=== PATIENT | male | born 1970 | race Caucasian/White ===

== ENCOUNTER 2023-01-30 08:09 | Outpatient (OUT) | payer BC, SELFPAY ==
[2023-01-30 08:39] LABS: Basophils Percent Auto 0.4 % (0.2-2.0); Eosinophils Absolute Auto 0.1 10^3/uL (0.0-0.7); Eosinophils Percent Auto 2.4 % (0.9-7.0); Hemoglobin 16.1 g/dL (14.0-18.0); Immature Granulocytes Abs Auto 0.03 10^3/uL (0.00-0.03); Immature Granulocytes Pct Auto 0.6 % (0.0-0.5); Lymphocytes Absolute Auto 1.6 10^3/uL (1.2-3.8); Lymphocytes Percent Auto 31.4 % (20.5-60.0); Mean Corpuscular HGB Conc 34.3 g/dL (29.9-35.2); Mean Corpuscular Hemoglobin 30.5 pg (25.9-34.0); Mean Platelet Volume 9.6 fL (9.5-13.5); Monocytes Absolute Auto 0.5 10^3/uL (0.3-0.8); Neutrophils Absolute Auto 2.8 10^3/uL (1.4-6.5); Neutrophils Percent Auto 55.2 % (43.0-75.0); Platelet Count 201 10^3/uL (150-450); Red Blood Count 5.28 10^6/uL (4.70-6.10); Red Cell Distribution Width 12.1 % (11.0-15.0)
[2023-01-30 08:49] LABS: Estimated Average Glucose 126 mg/dL
[2023-01-30 16:42] LABS: Anion Gap 14.5; BUN Creatinine Ratio 14.8; Calcium 8.6 mg/dL (8.5-10.1); Carbon Dioxide 25.5 mmol/L (21.0-32.0); Chloride 104 mmol/L (98-107); Estimated GFR (African America >60 (>=60); Estimated GFR (Non-African Ame >60 (>=60); Glucose 130 mg/dL (74-106); Sodium 140 mmol/L (136-145); Thyroid Stimulating Hormone 1.298 uIU/mL (0.358-3.740)
== END 2023-01-30 08:10 ==
LOC: LAB 08:12
PROVIDERS: PCP Internal Medicine; Visit Provider Internal Medicine
DX: I10 Essential (primary) hypertension (principal); R73.01 Impaired fasting glucose; R00.2 Palpitations; R53.83 Other fatigue
CPT/HCPCS: 36415; 80048; 83036; 84443; 85025

== ENCOUNTER 2023-06-26 10:45 | Outpatient (OUT) | payer BC, SELFPAY ==
[2023-06-26 10:58] LABS: Basophils Percent Auto 0.4 % (0.2-2.0); Eosinophils Absolute Auto 0.1 10^3/uL (0.0-0.7); Eosinophils Percent Auto 2.1 % (0.9-7.0); Hematocrit 50.5 % (42.0-54.0); Hemoglobin 16.9 g/dL (14.0-18.0); Immature Granulocytes Abs Auto 0.04 10^3/uL (0.00-0.03); Immature Granulocytes Pct Auto 0.6 % (0.0-0.5); Lymphocytes Absolute Auto 1.7 10^3/uL (1.2-3.8); Lymphocytes Percent Auto 25.5 % (20.5-60.0); Mean Corpuscular HGB Conc 33.5 g/dL (29.9-35.2); Mean Corpuscular Hemoglobin 30.9 pg (25.9-34.0); Mean Corpuscular Volume 92.3 fL (80.0-94.0); Monocytes Absolute Auto 0.5 10^3/uL (0.3-0.8); Monocytes Percent Auto 6.9 % (1.7-12.0); Neutrophils Absolute Auto 4.3 10^3/uL (1.4-6.5); Neutrophils Percent Auto 64.5 % (43.0-75.0); Platelet Count 227 10^3/uL (150-450); Red Blood Count 5.47 10^6/uL (4.70-6.10); Red Cell Distribution Width 12.2 % (11.0-15.0); White Blood Count 6.7 10^3/uL (4.0-11.0)
[2023-06-26 11:23] LABS: Alanine Aminotransferase 63 U/L (16-63); Albumin Globulin Ratio 1.2; Albumin Level 3.9 g/dL (3.4-5.0); Alkaline Phosphatase 68 U/L (46-116); Aspartate Amino Transferase 29 U/L (15-37); BUN Creatinine Ratio 9.5; Bilirubin Total 0.6 mg/dL (0.2-1.0); Calcium 8.4 mg/dL (8.5-10.1); Carbon Dioxide 31.1 mmol/L (21.0-32.0); Chloride 102 mmol/L (98-107); Estimated GFR (African America >60 (>=60); Estimated GFR (Non-African Ame >60 (>=60); Globulin 3.3 g/dL; Glucose 162 mg/dL (74-106); Potassium 4.1 mmol/L (3.5-5.1); Sodium 138 mmol/L (136-145); Total Protein 7.2 g/dL (6.4-8.2)
== END 2023-06-26 10:46 | disposition home or self-care (01) ==
PROVIDERS: PCP Internal Medicine; Visit Provider Internal Medicine
DX: R10.11 Right upper quadrant pain (principal); K21.00 Gastro-esophageal reflux disease with esophagitis, without bleeding; R11.0 Nausea
CPT/HCPCS: 36415; 80053; 83690; 85025

== ENCOUNTER 2023-07-02 09:58 | Outpatient (OUT) | payer BC, SELFPAY ==
--- NOTE | 2023-07-02 10:02 | US_ITS ---
The [address] [address] Patient Name: JOCY MICHAUD MRN: [id number] date: 1970 Sex: M Assigned Patient Location: [place] Current Patient Location: [place] Accession/Order Number: [id number] Exam Date: 07/02/2023 10:02 Report Date: 07/02/2023 10:59 At the request of: CARRIE TAFOYA Procedure: US right upper quadrant EXAM: US right upper quadrant HISTORY: . Right Upper Quadrant Abdominal Pain R10.11 . COMPARISON: None. TECHNIQUE: Grayscale and color imaging was performed FINDINGS: The pancreas is grossly unremarkable. The liver is normal in size. There is increased echogenicity of liver consistent with fatty infiltration of liver. Color-flow is noted in the portal and hepatic veins. The gallbladder appears normal. Common bile duct measures 8 mm. Right kidney measures 11.5 x 5.2 x 6 cm. Color-flow is noted. There is a 7 mm cyst involving the right kidney. No hydronephrosis is noted. No fluid is noted in the right upper quadrant. US/US right upper quadrant IMPRESSION: 1. Increased echogenicity of liver consistent with fatty infiltration of liver. 2. Common bile duct is prominent in size measuring 8 mm. 3. The remainder the right upper quadrant was unremarkable. Electronically authenticated by: NESS DUARTE Date: 07/02/2023 10:59
== END 2023-07-02 09:59 | disposition home or self-care (01) ==
LOC: US 09:58
PROVIDERS: PCP Internal Medicine; Visit Provider Internal Medicine
DX: R10.11 Right upper quadrant pain (principal); K76.0 Fatty (change of) liver, not elsewhere classified
CPT/HCPCS: 76705

== ENCOUNTER 2023-09-18 09:25 | Outpatient (OUT) | payer BC, SELFPAY ==
--- OUTSIDE RECORDS SUMMARY | 2023-09-18 09:31 | XMS_ITS | CCD ---
Author Name Unknown Address [address] [place] [address] Organization [facility] Care Team Providers Care Produce Team Lead Name Role Phone NILL, DR SANDRA Admitting Unavailable NILL, DR SANDRA Attending Unavailable BALL, DR BUTLER Primary Care Unavailable NILL, DR SANDRA Consulting Unavailable AGUBOSIM, RAJ Consulting Unavailable NADYA, REHANA Consulting Unavailable BALL, DR BUTLER Admitting Unavailable BALL, DR BUTLER Attending Unavailable BALL, DR BUTLER Primary Care Unavailable BALL, DR BUTLER Consulting Unavailable BALL, DR BUTLER Admitting Unavailable BALL, DR BUTLER Attending Unavailable BALL, DR BUTLER Primary Care Unavailable BALL, DR BUTLER Consulting Unavailable NILL, DR SANDRA Admitting Unavailable NILL, DR SANDRA Attending Unavailable BALL, DR BUTLER Primary Care Unavailable NILL, DR SANDRA Consulting Unavailable Ball, Octavio Unavailable Pati Xiong Unavailable Allergies Allergy Classification Reported Allergen(s) Allergy Type Date of Onset Reaction(s) Facility (1 source) patient allergy list reviewed by nurse or physicia Propensity to adverse reactions 8 Comment:Done [facility] Other Medications Current Medications Medication Drug Class(es) Dates Sig (Normalized) Sig (Original) aspirin 81 mg chewable tablet (11 sources) Platelet Aggregation Inhibitor, Nonsteroidal Anti-inflammatory Drug take 1 tablet by mouth every twenty-four hours Aspirin 81 81 MG 1 tablet Orally Once a day Active take 1 tablet by mouth once emanuel y Aspirin 81 81 MG 1 tablet Orally Once a day Active atenolol 50 mg oral tablet (7 sources) beta-Adrenergic Reuben Start: 05-10-2023 take 1 tablet by mouth every twenty-four hours Atenolol 50 MG 1 tablet Orally Once a day for 30 days Replaces Diltiazem Apr, Active cyproheptadine hydrochloride 4 mg oral tablet (7 sources) Start: 05-10-2023 take 1 tablet by mouth once at bedtime Cyproheptadine HCl 4 MG 1 tablet Orally q HS for 30 days Apr, Active take 1 tablet by mouth at bedtim e Cyproheptadine HCl 4 MG TAKE 1 TABLET BY MOUTH AT BEDTIME for 90 Active 24 hr dilTIAZem hydrochloride 240 mg extended release oral capsule (4 sources) Calcium Channel Reuben take 1 capsule by mouth every twenty-four hours dilTIAZem HCl ER 240 MG 1 capsule Orally Once a day Active etodolac 400 mg oral tablet (4 sources) Nonsteroidal Anti-inflammatory Drug Start: 10-09-19 take 1 tablet by mouth every twelve hours Etodolac 400 MG 1 tablet with food Orally Twice a day for 7 days Sep, Active famotidine 10 mg oral tablet (11 sources) Histamine-2 Receptor Antagonist take 1 tablet by mouth every twenty-four hours Famotidine 10 MG 1 tablet Orally Once a day Active niacin 500 mg oral tablet (11 sources) Nicotinic Acid take 1 tablet by mouth every twenty-four hours Niacin 500 MG 1 tablet with food Orally Once a day Active omeprazole 40 mg delayed release oral capsule (5 sources) Proton Pump Inhibitor Start: 06-25-20 take 1 capsule by mouth once daily Omeprazole 40 MG 1 capsule 30 minutes before morning meal Orally Once a day for 30 days Jun, Active Completed/Discontinued Medications Medication Drug Class(es) Dates Sig (Normalized) Sig (Original) ondansetron 4 mg oral tablet (5 sources) Serotonin-3 Receptor Antagonist Start: 06-25-2023 take 1 tablet by mouth every eight hours as needed for nausea Ondansetron HCl 4 MG 1 tablet Orally every 8 hours as needed for nausea for 5 days Jun, Not-Taking/PRN triamcinolone acetonide 40 mg/ml injectable suspension (8 sources) Corticosteroid Start: 05-03-2023 Kenalog-40 Apr, 60 mg Problems Active Problems Problem Classification Problem Date Documented Da te Episodic/Chronic Abdominal pain (13 sources) Epigastric pain; Translations: [Epigastric pain] Episodic Cardiac dysrhythmias (13 sources) Intermittent palpitations; Translations: [Palpitations] Episodic Developmental disorders (3 sources) Developmental academic disorder; Translations: [Developmental disorder of scholastic skills, unspecified] Onset: 06-22-2016 Chronic Developmental disorders (11 sources) Borderline intellectual disability; 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] Episodic Diabetes mellitus without complication (14 sources) Impaired fasting glycemia; Translations: [Impaired fasting glucose] Episodic Disorders of lipid metabolism (3 sources) Pure hypercholesterolemi a; Translations: [Pure hypercholesterolemi a, unspecified] Onset: 05-21-2015 Chronic Esophageal disorders (11 sources) Gastro-esophageal reflux disease with esophagitis; Translations: [Gastroesophageal reflux disease with esophagitis without hemorrhage] Chronic Essential hypertension (20 sources) Essential (primary) hypertension; Translations: [Essential hypertension] Onset: 11-03-2021 Chronic Headache; including migraine (20 sources) Tension-type headache; Translations: [Tension-type headache, unspecified, not intractable] Chronic Headache; including migraine (12 sources) Daily headache; Translations: [Daily headache] Episodic Malaise and fatigue (1 source) Other fatigue Episodic Mood disorders (14 sources) Mild recurrent major depression; Translations: [Major depressive disorder, recurrent, mild] Onset: 06-22-2016 Chronic Nausea and vomiting (1 source) Nausea Episodic Other connective tissue disease (12 sources) Muscle pain; Translations: [Myalgia, other site] Episodic Other gastrointestinal disorders (12 sources) Abnormal feces; Translations: [Other fecal abnormalities] Episodic Other nutritional; endocrine; and metabolic disorders (1 source) Obesity; Translations: [Obesity, unspecified] Chronic Other nutritional; endocrine; and metabolic disorders (14 sources) Body mass index 25-29 - overweight; Translations: [Overweight] Onset: 10-07-2015 Episodic Other nutritional; endocrine; and metabolic disorders (2 sources) Overweight Episodic Other nutritional; endocrine; and metabolic disorders (1 source) Overweight; Translations: [Overweight] Episodic Other screening for suspected conditions (not mental disorders or infectious disease) (3 sources) Encounter for screening for malignant neoplasm of prostate; Translations: [Electrocardiogram abnormal] Onset: 09-28-2022 Resolved: 01-07-2021 Episodic Other upper respiratory disease (20 sources) Seasonal allergic rhinitis; Translations: [Other seasonal allergic rhinitis] Chronic Other upper respiratory disease (11 sources) Allergic rhinitis due to pollen; Translations: [Allergic rhinitis due to pollen] Chronic Other upper respiratory disease (1 source) Allergic rhinitis; Translations: [Allergic rhinitis, unspecified] Onset: 04-27-2013 Chronic Other upper respiratory disease (1 source) Other seasonal allergic rhinitis Chronic Other upper respiratory infections (2 sources) Acute pharyngitis; Translations: [Acute pharyngitis, unspecified] Onset: 01-10-2014 Episodic Residual codes; unclassified (11 sources) Family history of coronary arteriosclerosis; Translations: [Family history of ischemic heart disease and other diseases of the circulatory system] Episodic Residual codes; unclassified (1 source) Family history of ischemic heart disease; Translations: [Family history of ischemic heart disease and other diseases of the circulatory system] Episodic Unclassified (4 sources) CONTACT W/AND (SUSP) EXPOS COVID-19; Translations: [CONTACT W/AND (SUSP) EXPOS COVID-19] Onset: 10-28-2021 Unclassified (1 source) Exposure to acute respiratory syndrome coronavirus 2; Translations: [Contact with and (suspected) exposure to COVID-19] Past or Other Problems Problem Classification Problem Date Documented Da te Episodic/Chronic Anal and rectal conditions (1 source) Ulcer of anorectal structure; Translations: [Ulcer of anus and rectum] Onset: 05-13-2015 Episodic Esophageal disorders (4 sources) Esophageal disorders Immunizations and screening for infectious disease (1 source) Vaccination given; Translations: [Encounter for immunization] Onset: 06-21-2014 Episodic Nonspecific chest pain (2 sources) Chest pain; Translations: [Other chest pain] Resolved: 01-07-2021 Episodic Other aftercare (1 source) long-term (current) use of aspirin; Translations: [SPEECH SCIENTIST CURRENT USE OF ASPIRIN] Onset: 11-03-2021 Episodic Other and unspecified benign neoplasm (1 source) Benign neoplasm of ascending colon; Translations: [BENIGN NEOPLASM OF ASCENDING COLON] Onset: 11-03-2021 Episodic Other and unspecified benign neoplasm (1 source) Polyp of colon; Translations: [POLYP OF COLON] Onset: 11-03-2021 Episodic Other gastrointestinal disorders (4 sources) Other fecal abnormalities; Translations: [OTHER FECAL ABNORMALITIES] Onset: 10-29-2021 Episodic Other non-traumatic joint disorders (1 source) Shoulder joint pain; Translations: [Pain in left shoulder] Onset: 10-07-2015 Episodic Unclassified (1 source) CONTACT W/AND (SUSP) EXPOS COVID-19; Translations: [CONTACT W/AND (SUSP) EXPOS COVID-19] Onset: 06-08-2022 Unclassified (11 sources) Suspected disease caused by 2019-nCoV; Translations: [Suspected COVID-19 virus infection] Results Test Name Value Interpretation Reference Range Facil ity CBC AUTO DIFFon 09-26-2022 BASO # 0.0 103/ul Normal 0.0-0.1 [facility] Comment on above: Performed By: #### C BC #### [facility] [address] [address] [address] Billy Vann Basophils/100 WBC (Bld) 0.3 % Normal 0.2-2.0 [facility] Comment on above: Performed By: #### C BC #### [facility] [address] [address] [address] Billy Vann EO # 0.2 103/ul Normal 0.0-0.7 [facility] Comment on above: Performed By: #### C BC #### [facility] [address] [address] [address] Billy Vann Eosinophils/100 WBC (Bld) 2.6 % Normal 0.9-7.0 [facility] Comment on above: Performed By: #### C BC #### [facility] [address] [address] [address] Billy Vann Erythrocyte distribution width (RBC) [Ratio] 11.9 % Normal 11.0-15.0 [facility] Comment on above: Performed By: #### C BC #### [facility] [address] [address] [address] Billy Vann Hematocrit (Bld) [Volume fraction] 51.4 % Normal 42.0-54.0 [facility] Comment on above: Performed By: #### C BC #### [facility] [address] [address] [address] Billy Vann Hemoglobin (Bld) [Mass/Vol] 16.9 g/dL Normal 14.0-18.0 [facility] Comment on above: Performed By: #### C BC #### [facility] [address] [address] [address] Billy Vann IG # 0.03 10e3/ul Normal 0.00-0.03 [facility] Comment on above: Performed By: #### C BC #### [facility] [address] [place] [address] Dr. Billy Vann IG % 0.5 % Normal 0.0-0.5 [facility] Comment on above: Performed By: #### C BC #### [facility] [address] [place] [address] Dr. Billy Vann LYMPH # 1.7 103/ul Normal 1.2-3.8 [facility] Comment on above: Performed By: #### C BC #### [facility] [address] [place] [address] Dr. Billy Vann Lymphocytes/100 WBC (Bld) 29.6 % Normal 20.5-60.0 [facility] Comment on above: Performed By: #### C BC #### [facility] [address] [place] [address] Dr. Billy Vann MANUAL DIFF REQ NO Normal [facility] Comment on above: Performed By: #### C BC #### [facility] [address] [place] [address] Dr. Billy Vann MCH (RBC) [Entitic mass] 30.7 pg Normal 25.9-34.0 [facility] Comment on above: Performed By: #### C BC #### [facility] [address] [place] [address] Dr. Billy Vann MCHC (RBC) [Mass/Vol] 32.9 g/dL Normal 29.9-35.2 [facility] Comment on above: Performed By: #### C BC #### [facility] [address] [place] [address] Dr. Billy Vann MCV (RBC) [Entitic vol] 93.5 fL Normal 80.0-94.0 [facility] Comment on above: Performed By: #### C BC #### [facility] [address] [place] [address] Dr. Billy Vann MONO # 0.5 103/ul Normal 0.3-0.8 [facility] Comment on above: Performed By: #### C BC #### [facility] [address] [address] [address] Billy Vann Monocytes/100 WBC (Bld) 8.5 % Normal 1.7-12.0 [facility] Comment on above: Performed By: #### C BC #### [facility] [address] [address] [address] Billy Vann NEUT # 3.4 103/ul Normal 1.4-6.5 [facility] Comment on above: Performed By: #### C BC #### [facility] [address] [address] [address] Billy Vann Neutrophils/100 WBC (Bld) 58.5 % Normal 43.0-75.0 [facility] Comment on above: Performed By: #### C BC #### [facility] [address] [place] [address] Dr. Billy Vann Platelet mean volume (Bld) [Entitic vol] 9.6 fL Normal 9.5-13.5 [facility] Comment on above: Performed By: #### C BC #### [facility] [address] [place] [address] Dr. Billy Vann PLT 196 103/ul Normal 150-450 [facility] Comment on above: Performed By: #### C BC #### [facility] [address] [place] [address] Dr. Billy Vann RBC 5.50 106/ul Normal 4.70-6.10 [facility] Comment on above: Performed By: #### C BC #### [facility] [address] [place] [address] Dr. Billy Vann WBC 5.9 103/ul Normal 4.0-11.0 [facility] Comment on above: Performed By: #### C BC #### [facility] [address] [place] [address] Dr. Billy Vann LIPID PROFILEon 09-26-2022 CHOL-HDL RATIO NORM SEE BELOW Normal [facility] Comment on above: Result Comment: 3.3 - 4.4 LOW RISK 4.4 - 7.1 AVERAGE RISK 7.1 - 11.0 MODERATE RISK >11.0 HIGH RISK Performed By: #### C MP, LIPID #### [facility] [address] [place] [address] Dr. Billy Vann Cholesterol [Mass/Vol] 180 mg/dL Normal <=200 [facility] Comment on above: Performed By: #### C MP, LIPID #### [facility] [address] [address] [address] Billy Vann Cholesterol in HDL [Mass/Vol] 39 mg/dL Critically low 40-60 [facility] Comment on above: Performed By: #### C MP, LIPID #### [facility] [address] [place] [address] Dr. Billy Vann Cholesterol in LDL [Mass/Vol] 105.0 mg/dL Normal [facility] Comment on above: Performed By: #### C MP, LIPID #### [facility] [address] [place] [address] Dr. Billy Vann Cholesterol.total/Ch olesterol in HDL [Mass ratio] 4.6 {ratio} Normal [facility] Comment on above: Performed By: #### C MP, LIPID #### [facility] [address] [place] [address] Dr. Billy Vann HDL NORMAL > or = 60 mg/dl - LOW CARDIOVASCULAR RISK <40 mg/dl - HIGH CARDIOVASCULAR RISK Normal [facility] Comment on above: Performed By: #### C MP, LIPID #### [facility] [address] [place] [address] Dr. Billy Vann LDL CALC NORMAL SEE BELOW Normal [facility] Comment on above: Result Comment: <100 mg/dl OPTIMAL 100 - 129 mg/dl NEAR OR ABOVE OPTIMAL 130 - 159 mg/dl BORDERLINE HIGH 160 - 189 mg/dl HIGH >190 mg/dl VERY HIGH Performed By: #### C MP, LIPID #### [facility] [address] [place] [address] Dr. Billy Vann Triglyceride [Mass/Vol] 180 mg/dL Critically high <=150 [facility] Comment on above: Performed By: #### C MP, LIPID #### [facility] [address] [place] [address] Dr. Billy Vann VLDL CALC 36.0 mg/dL Normal [facility] Comment on above: Performed By: #### C MP, LIPID #### [facility] [address] [place] [address] Dr. Billy Vann PROF 14(COMP METB)on 023 Albumin [Mass/Vol] 4.0 g/dL Normal 3.4-5.0 [facility] Comment on above: Performed By: #### C MP, LIPID #### [facility] [address] [place] [address] Dr. Billy Vann Albumin/Globulin [Mass ratio] 1.3 {ratio} Normal [facility] Comment on above: Performed By: #### C MP, LIPID #### [facility] [address] [place] [address] Dr. Billy Vann ALP [Catalytic activity/Vol] 64 U/L Normal 46-116 [facility] Comment on above: Performed By: #### C MP, LIPID #### [facility] [address] [place] [address] Dr. Billy Vann ALT [Catalytic activity/Vol] 38 U/L Normal 16-63 [facility] Comment on above: Performed By: #### C MP, LIPID #### [facility] [address] [place] [address] Dr. Billy Vann Anion gap [Moles/Vol] 10.0 mmol/L Normal [facility] Comment on above: Performed By: #### C MP, LIPID #### [facility] [address] [place] [address] Dr. Billy Vann AST [Catalytic activity/Vol] 22 U/L Normal 15-37 [facility] Comment on above: Performed By: #### C MP, LIPID #### [facility] [address] [place] [address] Dr. Billy Vann Bilirubin [Mass/Vol] 0.6 mg/dL Normal 0.2-1.0 [facility] Comment on above: Performed By: #### C MP, LIPID #### [facility] [address] [address] [address] Billy Vann Calcium [Mass/Vol] 8.8 mg/dL Normal 8.5-10.1 [facility] Comment on above: Performed By: #### C MP, LIPID #### [facility] [address] [address] [address] Billy Vann Chloride [Moles/Vol] 103 mmol/L Normal 98-107 [facility] Comment on above: Performed By: #### C MP, LIPID #### [facility] [address] [place] [address] Dr. Billy Vann CO2 [Moles/Vol] 31.2 mmol/L Normal 21.0-32.0 [facility] Comment on above: Performed By: #### C MP, LIPID #### [facility] [address] [place] [address] Dr. Billy Vann Creatinine [Mass/Vol] 0.78 mg/dL Normal 0.70-1.30 [facility] Comment on above: Performed By: #### C MP, LIPID #### [facility] [address] [place] [address] Dr. Billy Vann EGFR-AF PALESTINIAN >60 Normal >=60 [facility] Comment on above: Performed By: #### C MP, LIPID #### [facility] [address] [place] [address] Dr. Billy Vann EGFR-NON AF PALESTINIAN >60 Normal >=60 [facility] Comment on above: Performed By: #### C MP, LIPID #### [facility] [address] [place] [address] Dr. Billy Vann Globulin (S) [Mass/Vol] 3.1 g/dL Normal [facility] Comment on above: Performed By: #### C MP, LIPID #### [facility] [address] [place] [address] Dr. Billy Vann Glucose [Mass/Vol] 122 mg/dL Critically high 74-106 [facility] Comment on above: Performed By: #### C MP, LIPID #### [facility] [address] [place], [place] [id number] Dr. Billy Vann Potassium [Moles/Vol] 4.2 mmol/L Normal 3.5-5.1 [facility] Comment on above: Performed By: #### C MP, LIPID #### [facility] [address] [place] [address] Dr. Billy Vann Protein [Mass/Vol] 7.1 g/dL Normal 6.4-8.2 [facility] Comment on above: Performed By: #### C MP, LIPID #### [facility] [address] [place] [address] Dr. Billy Vann Sodium [Moles/Vol] 140 mmol/L Normal 136-145 [facility] Comment on above: Performed By: #### C MP, LIPID #### [facility] [address] [place] [address] Dr. Billy Vann Urea nitrogen [Mass/Vol] 10.0 mg/dL Normal 7.0-18.0 [facility] Comment on above: Performed By: #### C MP, LIPID #### [facility] [address] [place] [address] Dr. Billy Vann Urea nitrogen/Creatinine [Mass ratio] 12.8 mg/mg Normal [facility] Comment on above: Performed By: #### C MP, LIPID #### [facility] [address] [place] [address] Dr. Billy Vann [facility]on 05-23 SARS-CoV-2 (COVID-19) RNA YAHIR+probe Ql (Unsp spec) Not detected Normal NOT DETECTED [facility] Comment on above: Result Comment: This test is not yet approved or cleared by the [place] FDA. When there are no FDA-approved or cleared tests available, and other criteria are met, FDA can make tests available under an emergency access mechanism called an Emergency Use Authorization (EUA). The EUA for this test is supported by the [place] [employer] of Health and Human Service's (HHS's) declaration that circumstances exist to justify the emergency use of in vitro diagnostics for the detection and/or diagnosis of the virus that causes COVID-19. This EUA will remain in effect (meaning this test can be used) for the duration of the COVID-19 declaration justifying emergency of IVDs, unless it is terminated or revoked by FDA (after which the test may no longer be used). When diagnostic testing is negative, the possibility of a false negative should be considered in the context of a patient's recent exposures and the presence of clinical signs and symptoms consistent with SARS-CoV-2. Performed By: #### [facility] #### [facility] [address] [place] [address] Dr. Billy Vann Ambulatory Visit Summaryon 0 11-04-2021 Ambulatory Visit Summary JASWANT, JOCY Coburn :1970 Visit Date:11/04/2021 Ambulatory Visit Instructions Your Diagnosis Tubulovillous adenoma of colon Your Care Team Attending Physician - Jocy BRADSHAW MD Primary Care Physician - BRENDAN HILLMAN, OCTAVIO This Is Your Medications List Contact prescribing physician if questions or concerns aspirin (aspirin 81 mg Oral EC Tab) diltiazem (DilTIAZem (Eqv-Tiazac) 240 mg/24 hours oral capsule, extended release) famotidine (famotidine 10 mg oral tablet) niacin (niacin 500 mg oral tablet) Procedures Performed Colonoscopy (10/29/2021). Discharge Vitals Temperature (Temporal Artery) 36.3 ?C Medications What How Much When Instructions Unchanged aspirin (aspirin 81 mg Oral EC Tab) 1 Tablets By Mouth Every day Contact prescribing physician if questions or concerns Unchanged diltiazem (DilTIAZem (Eqv-Tiazac) 240 mg/ 24 hours oral capsule, extended release) 1 Capsules By Mouth Every day Contact prescribing physician if questions or concerns Unchanged famotidine (famotidine 10 mg oral tablet) 1 Tablets By Mouth Every day Contact prescribing physician if questions or concerns Unchanged niacin (niacin 500 mg oral tablet) 1 Tablets By Mouth Every day Contact prescribing physician if questions or concerns Allergies No Known Allergies No Known Medication Allergies Problems Ongoing - Any problem that you are currently receiving treatment for. BMI 28.0-28.9,adult Borderline learning disability Chronic headaches HTN (hypertension) Major depressive disorder Positive colorectal cancer screening using Cologuard test Seasonal allergic rhinitis Tubulovillous adenoma of colon Lauri Wilkinson [facility] General Surgery Office/Clini c Noteon 03-15-2022 General Surgery Office/Clinic Note Chief Complaint post operative follow up HPI Staff 6 day post operative follow up post colonoscopy with ascending colon, sigmoid and rectal polypectomies. History of Present Illness 6 days s/p colonoscopy due to positive Cologuard; 3 polyps removed, 1 cm tubulovillous adenoma from transverse colon, and hyperplastic polyps in sigmoid and rectum; denies abdominal pain or blood in stools. Review of Systems ROS - Provider Constitutional: no fever, no sweats, no weight loss. Eyes: no glasses, no blurred vision, no visual loss. ENMT: no dentures, no hoarseness, no swallowing difficulties, no hearing loss, no ear infection(s), no nose bleeds. Cardiovascular: normal blood pressure, no chest pain, regular heartbeat, no heart murmur. Respiratory: no shortness of breath, no cough, no asthma, no wheezing. Gastrointestinal: no nausea, no vomiting, no diarrhea, no constipation, no blood in stool, no change in bowel habits, no abdominal pain, no hepatitis. Genitourinary: no kidney stones, no urine infection, no dysuria. Musculoskeletal: no pain, no weakness. Skin: no changing moles, no rash, no skin lumps. Neurologic: no seizures, no epilepsy, no headache. Psychiatric: no emotional or psychiatric problem. Heme/Lymph: no bleeding problems, no anemia, no blood clots, no transfusions. Allergy/Immunologic: no swollen lymph nodes/glands, no IV drug abuse. Other: Additional ROS info: Except as noted in the above Review of Systems and in the History of Present Illness, all other systems have been reviewed and are negative or noncontributory. Physical Exam Vitals & Measurements T: 36.3 ?C(Temporal Artery) Assessment/Plan 1. Tubulovillous adenoma of colon (D12.6: Benign neoplasm of colon, unspecified) plan follow up colonoscopy in 3 years for surveillance, call sooner if problems/questions. Follow-up No qualifying data available Problem List/Past Medical History Ongoing BMI 28.0-28.9,adult Borderline learning disability Chronic headaches HTN (hypertension) Major depressive disorder Positive colorectal cancer screening using Cologuard test Seasonal allergic rhinitis Tubulovillous adenoma of colon Historical No qualifying data Procedure/Surgical History Colonoscopy (10/29/2021). Medications aspirin 81 mg Oral EC Tab, 81 mg= 1 tab(s), Oral, Daily DilTIAZem (Eqv-Tiazac) 240 mg/24 hours oral capsule, extended release, 240 mg= 1 cap(s), Oral, Daily famotidine 10 mg oral tablet, 10 mg= 1 tab(s), Oral, Daily niacin 500 mg oral tablet, 500 mg= 1 tab(s), Oral, Daily Allergies No Known Allergies No Known Medication Allergies Social History Alcohol - Denies Alcohol Use, 10/07/2021 Substance Abuse - Denies Substance Abuse, 10/07/2021 Tobacco Never (less than 100 in lifetime) Tobacco Use:. Never Smokeless Tobacco Use:., 10/07/2021 Family History CAD - Coronary artery disease: Father. Diabetes mellitus type 2: Father. Hypertension: Mother. Immunizations Vaccine Date Status influenza virus vaccine, inactivated 05/2021 Recorded Normal [facility] Comment on above: Result Comment: Elec tronically Signed By: DOMENIC WEST, Jocy Garcia\Date and Time Signed: 11/04/21 16:18 EDT Reminderson 11-04-2021 Reminders - From: Magalys Mendoza LPN To: N - Clinical; Sent: 11/04/2021 15:56:14 EDT Show up: 10/01/2024 07:00:00 EST Subject: colonoscopy recall Due Date/Time: 10/29/2024 07:00:00 EDT Reminder/Recall Patient is due for colonoscopy 10/29/2024 due to history of tubulovillous adenoma. Normal [facility] Pathology Noteon 10-31-2021 Pathology Note [id number] #1.00CD:127 Normal [facility] Outside Colonoscopyon 2021 Outside Colonoscopy [id number] #1.00CD:127 Normal [facility] Lab Reportson 10-27-2021 Lab Reports [id number] #1.00CD:127 Normal [facility] Covid-19 PCR (CVDTBH)on SARS-CoV-2 (COVID-19) RNA YAHIR+probe Ql (Unsp spec) Not detected Normal NOT DETECTED [facility] Comment on above: Result Comment: This test is not yet approved or cleared by the [place] FDA. When there are no FDA-approved or cleared tests available, and other criteria are met, FDA can make tests available under an emergency access mechanism called an Emergency Use Authorization (EUA). The EUA for this test is supported by the [place] of Health and Human Service's (HHS's) declaration that circumstances exist to justify the emergency use of in vitro diagnostics for the detection and/or diagnosis of the virus that causes COVID-19. This EUA will remain in effect (meaning this test can be used) for the duration of the COVID-19 declaration justifying emergency of IVDs, unless it is terminated or revoked by FDA (after which the test may no longer be used). When diagnostic testing is negative, the possibility of a false negative should be considered in the context of a patient's recent exposures and the presence of clinical signs and symptoms consistent with SARS-CoV-2. Performed By: #### [facility] #### [facility] [address] [address] [address] Billy Vann Ambulatory Visit Summaryon 0 10-07-2021 Ambulatory Visit Summary JOCY MICHAUD :1970 Visit Date:10/07/2021 Ambulatory Visit Instructions Your Care Team Attending Physician - Jocy BRADSHAW MD Primary Care Physician - OCTAVIO TAFOYA DO Referring Physician - OCTAVIO TAFOYA DO This Is Your Medications List aspirin (aspirin 81 mg Oral EC Tab) diltiazem (DilTIAZem (Eqv-Tiazac) 240 mg/24 hours oral capsule, extended release) famotidine (famotidine 10 mg oral tablet) niacin (niacin 500 mg oral tablet) Procedures Performed None. Discharge Vitals Temperature (Temporal Artery) 36.5 ?C Heart Rate (Peripheral) 72 Respiratory Rate 16 Blood Pressure 112/80 Height 187.9 cm Height 187.9 cm Weight 99 kg Weight 99.0 kg BMI 28.04 Medications What How Much When Instructions Unchanged aspirin (aspirin 81 mg Oral EC Tab) 1 Tablets By Mouth Every day Unchanged diltiazem (DilTIAZem (Eqv-Tiazac) 240 mg/ 24 hours oral capsule, extended release) 1 Capsules By Mouth Every day Unchanged famotidine (famotidine 10 mg oral tablet) 1 Tablets By Mouth Every day Unchanged niacin (niacin 500 mg oral tablet) 1 Tablets By Mouth Every day Allergies No Known Allergies No Known Medication Allergies Problems Ongoing - Any problem that you are currently receiving treatment for. BMI 28.0-28.9,adult Borderline learning disability Chronic headaches HTN (hypertension) Major depressive disorder Seasonal allergic rhinitis Normal [facility] Lab Reportson 10-03-2021 Lab Reports [id number] #1.00CD:127 Normal [facility] Lab Reportson 09-22-2021 Lab Reports [id number] #1.00CD:127 Normal [facility] Physician Referralon 022 Physician Referral [id number] #1.00CD:127 Normal [facility] Vital Signs Date Time Vital Sign Value Performing Clinician Facility 09-13-2023 15:30-0500 Body height 185.42 cm Octavio Tafoya Other [facility] Other 09-13-2023 15:30-0500 Body mass index (BMI) [Ratio] 28.07 kg/m2 Octavio Boxer Other [facility] Other 09-13-2023 15:30-0500 Body weight 96.53 kg Octavio Boxer Other [facility] Other 09-13-2023 15:30-0500 Diastolic blood pressure 75 mm[Hg] Octavio Boxer Other [facility] Other 09-13-2023 15:30-0500 Respiratory rate 12 /min Octavio Boxer Other [facility] Other 09-13-2023 15:30-0500 Systolic blood pressure 105 mm[Hg] Octavio Ball Other [facility] Other 06-25-2023 14:00-0400 Body height 185.42 cm Octavio Ball Other [facility] Other 06-25-2023 14:00-0400 Body mass index (BMI) [Ratio] 28.49 kg/m2 Octavio Ball Other [facility] Other 06-25-2023 14:00-0400 Body weight 97.98 kg Octavio Ball Other [facility] Other 06-25-2023 14:00-0400 Diastolic blood pressure 82 mm[Hg] Octavio Ball Other [facility] Other 06-25-2023 14:00-0400 Respiratory rate 12 /min Octavio Ball Other [facility] Other 06-25-2023 14:00-0400 Systolic blood pressure 117 mm[Hg] Octavio Ball Other [facility] Other 12-30-2022 16:15-0400 Body height 185.42 cm Octavio Ball Other [facility] Other 12-30-2022 16:15-0400 Body mass index (BMI) [Ratio] 29.13 kg/m2 Octavio Ball Other [facility] Other 12-30-2022 16:15-0400 Body weight 100.15 kg Octavio Ball Other [facility] Other 12-30-2022 16:15-0400 Diastolic blood pressure 91 mm[Hg] Octavio Ball Other [facility] Other 12-30-2022 16:15-0400 Respiratory rate 12 /min Octavio Ball Other [facility] Other 12-30-2022 16:15-0400 Systolic blood pressure 134 mm[Hg] Octavio Ball Other [facility] Other 10-09-2022 13:45-0500 Body height 185.42 cm Octavio Ball Other [facility] Other 10-09-2022 13:45-0500 Body mass index (BMI) [Ratio] 29.21 kg/m2 Octavio Ball Other [facility] Other 10-09-2022 13:45-0500 Body weight 100.43 kg Octavio Ball Other [facility] Other 10-09-2022 13:45-0500 Diastolic blood pressure 78 mm[Hg] Octavio Ball Other [facility] Other 10-09-2022 13:45-0500 Respiratory rate 12 /min Octavio Ball Other [facility] Other 10-09-2022 13:45-0500 Systolic blood pressure 122 mm[Hg] Octavio Ball Other [facility] Other 08-25-2022 16:30-0500 Body height 185.42 cm Octavio Ball Other [facility] Other 08-25-2022 16:30-0500 Body mass index (BMI) [Ratio] 28.71 kg/m2 Octavio Ball Other [facility] Other 08-25-2022 16:30-0500 Body weight 98.7 kg Octavio Ball Other [facility] Other 08-25-2022 16:30-0500 Diastolic blood pressure 82 mm[Hg] Octavio Tafoya Other [facility] Other 08-25-2022 16:30-0500 Respiratory rate 12 /min Octavio Tafoya Other [facility] Other 08-25-2022 16:30-0500 Systolic blood pressure 122 mm[Hg] Octavio Tafoya Other [facility] Other Encounters Encounter Date Encounter Type Care Provider Facility Start: 09-13-2023 End: 09-13-2023 ambulatory Octavio Tafoya Other [facility] Other Start: 09-13-2023 Encounter for genera l adult medical examination without abnormal findings Octavio Tafoya [facility] Start: 09-13-2023 Periodic preventive med est patient 40-64yrs Octavio Tafoya [facility] Start: 08-04-2023 End: 08-04-2023 ambulatory Octavio Tafoya Other [facility] Other Start: 08-04-2023 Telephone encounter Octavio Tafoya [facility] Start: 06-28-2023 End: 06-28-2023 ambulatory Octavio Tafoya Other [facility] Other Start: 06-28-2023 Telephone encounter Octavio Tafoya [facility] Start: 06-25-2023 End: 06-25-2023 ambulatory Octavio Tafoya Other [facility] Other Start: 06-25-2023 Office outpatient vi sit 15 minutes Octavio Tafoya [facility] Start: 06-25-2023 Telephone encounter Octavio Tafoya [facility] Start: 06-24-2023 End: 06-24-2023 ambulatory Octavio Tafoya Other [facility] Other Start: 06-24-2023 Telephone encounter Octavio Tafoya [facility] Start: 05-12-2023 End: 05-12-2023 ambulatory Octavio Tafoya Other [facility] Other Start: 05-12-2023 Telephone encounter Octavio Brendan [facility] Start: 05-03-2023 End: 05-03-2023 ambulatory Pati Xiong Other [facility] Other Start: 05-03-2023 Nursing evaluation o f patient and report Pati Xiong [facility] Start: 12-30-2022 End: 12-30-2022 ambulatory Octavio Tafoya Other [facility] Other Start: 12-30-2022 Office outpatient vi sit 25 minutes Octavio Tafoya [facility] Start: 10-09-2022 End: 10-09-2022 ambulatory Octavio Tafoya Other [facility] Other Start: 10-09-2022 Office outpatient vi sit 15 minutes Octavio Tafoya [facility] Start: 09-28-2022 Encounter for genera l adult medical examination without abnormal findings DR OCTAVIO TAFOYA [facility] Start: 09-26-2022 End: 09-27-[address] OCTAVIO TAFOYA Facility:[facility] Start: 09-26-2022 End: 09-27-2022 Encounter for general adult medical examination without abnormal findings DR OCTAVIO TAFOYA Facility:[facility] Start: 08-25-2022 End: 08-25-2022 ambulatory Octavio Tafoya Other [facility] Other Start: 08-25-2022 Patient encounter procedure Octavio Tafoya [facility] Start: 08-25-2022 Periodic preventive med est patient 40-64yrs Octavio Tafoya [facility] Start: 06-08-2022 End: 06-08-[address] OCTAVIO TAFOYA Facility:[facility] Start: 10-29-2021 End: 10-29-[address] JOCY BRADSHAW Facility:[facility] Start: 10-28-2021 Encounter for preprocedural laboratory examination DR JOCY BRADSHAW [facility] Start: 10-25-2021 End: 10-26-[address] JOCY BRADSHAW Facility:[facility] Start: 10-25-2021 End: 10-26-2021 Encounter for preprocedural laboratory examination DR JOCY BRADSHAW Facility:[facility] Start: 07-22-2021 Adult health examination Cristina dillon Tyrese Other [facility] Other Procedures Date Procedure Procedure Detail Performing Clinician Start: 09-26-[address] JOHNNIE BRADSHAW Comment on above: Performed By: #### P [facility] #### [facility] [address] [place] [address] Dr. Billy Vann Start: 06-22-2016 General examination of patient Pati Tyrese Other End: 09-17-2021 Depression screening Pati Tyrese Other Immunizations Immunization Date Immunization Notes Care Provider Fa cility 08-12-2021 COVID-19 Vaccine Pfi zer - Documentation Purposes Only Pati Xiong Other [facility] Other 07-24-2021 influenza virus vaccine, split virus (incl. purified surface antigen) Pati Xiong Other [facility] Other 06-06-2020 influenza virus vaccine, split virus (incl. purified surface antigen) Pati Xiong Other [facility] Other 05-04-2018 influenza virus vaccine, split virus (incl. purified surface antigen) Pati Xiong Other [facility] Other 06-28-2017 tetanus and diphther ia toxoids, adsorbed, preservative free, for adult use (5 Lf of tetanus toxoid and 2 Lf of diphtheria toxoid) Pati Xiong Other [facility] Other 06-25-2014 influenza virus vaccine, split virus (incl. purified surface antigen) Pati Xiong Other [facility] Other 05-31-2013 tetanus and diphther ia toxoids, adsorbed, preservative free, for adult use (5 Lf of tetanus toxoid and 2 Lf of diphtheria toxoid) Pati Tyrese Other [facility] Other Payers Date Payer Category Payer Unknown [id number] [id number] 1970 Unknown [id number] 1970 Unknown [id number] 1972 Unknown [id number] 1957 Unknown [id number] Social History Date Type Detail Facility Sex Assigned At [facility] Other Evaluation note 09-13-2023 Note Date & Type Note Facility 09-13-2023 Evaluation note Encounter Date Diagnosis Assessment Notes Aug, Primary hypertension (ICD-10 - I10) This patient is instructed to consume a healthy, low-fat, low-salt diet. They are also encouraged to continue exercise to achieve/maint ain a normal BMI. Patient is instructed on home BP measurements: - rest for 5 minutes w/o talking.- positioned w/ feet on floor and arm supported.- average best 2/3 readings w/ goal < 135/85.- update office w/ home readings in 2 weeks. Aug, Chronic tension-type headache, not intractable (ICD-10 - G44.229) Much improved w/ medication adjustments. Healthy diet, consistent sleep routine Aug, Gastroesophageal reflux disease with esophagitis without hemorrhage (ICD-10 - K21.00) Avoid lying flat after eating. Avoid eating 2 hours prior to bedtime. Smaller, frequent meals may be better tolerated.Josh ght loss if overweight.PP I with any heartburn.Mon itor for dysphagia. Aug, Overweight (BMI 25.0-29.9) (ICD-10 - E66.3) This patient has been instructed on a low-fat, high-fiber diet. They are instructed to reduce calories, portion sizes and snacks. It is recommended that they exercise for 30 minutes, 3-5 times weekly. Aug, Screening PSA (prostate specific antigen) (ICD-10 - Z12.5) Yearly LOYDA and PSA Aug, Wellness examination (ICD-10 - Z00.00) Healthy diet and exercise. Reviewed age-appropria te preventive testing recommended. [facility] Other Evaluation note 06-25-2023 Note Date & Type Note Facility 06-25-2023 Evaluation note Encounter Date Diagnosis Assessment Notes Jun, Right upper quadrant abdominal pain (ICD-10 - R10.11) Low fat, bland diet. GBUS and Hepatic pf, Amylase ER for increased pain, N/V or fever Jun, Gastroesophageal reflux disease with esophagitis without hemorrhage (ICD-10 - K21.00) [place], low fat diet. Begin Omeprazole daily Ondansetron as needed for nausea ER for increased pain, N/V/D or fever Jun, Nausea (ICD-10 - R11.0) [place] diet, small portions. Begin PPI Ondansetron as needed. [facility] Other Evaluation note 05-03-2023 Note Date & Type Note Facility 05-03-2023 Evaluation note Encounter Date Diagnosis Assessment Notes Apr, Acute seasonal allergic rhinitis (ICD-10 - J30.2) [facility] Other Evaluation note 12-30-2022 Note Date & Type Note Facility 12-30-2022 Evaluation note Encounter Date Diagnosis Assessment Notes December, IFG (impaired fasting glucose) (ICD-10 - R73.01) This patient is following a comprehensive diabetic treatment plan. They are checking their feet daily for calluses and nonhealing ulcers. They are being seen for yearly dilated eye examinations. Goals: SBP less than 130, LDL less than 100, FBS less than 140, AC and A1C less than 7%. They are checking their BS daily, will which are reviewed at the office visit. December, Primary hypertension (ICD-10 - I10) This patient is instructed to consume a healthy, low-fat, low-salt diet. They are also encouraged to continue exercise to achieve/maintai n a normal BMI. December, Intermittent palpitations (ICD-10 - R00.2) Avoid stimulants, hydrate and keep active/exercise . December, Gastroesophageal reflux disease with esophagitis without hemorrhage (ICD-10 - K21.00) Diet instructions: Smaller portions, avoid eating and laying flat, avoid eating or drinking prior to bedtime. Weight loss. December, Fatigue, unspecified type (ICD-10 - R53.83) [facility] Other Evaluation note 10-09-2022 Note Date & Type Note Facility 10-09-2022 Evaluation note Encounter Date Diagnosis Assessment Notes Sep, Migraine without aura and with status migrainosus, not intractable (ICD-10 - G43.001) Patient instructed on consistent meals and sleep routine. Reviewed triggers Initiate NSAIDs Sep, Essential (primary) hypertension (ICD-10 - I10) This patient is instructed to consume a healthy, low-fat, low-salt diet. They are also encouraged to continue exercise to achieve/maint ain a normal BMI. [facility] Other Evaluation note 08-25-2022 Note Date & Type Note Facility 08-25-2022 Evaluation note Encounter Date Diagnosis Assessment Notes Aug, Annual physical exam (ICD-10 - Z00.00) Aug, Essential (primary) hypertension (ICD-10 - I10) Aug, IFG (impaired fasting glucose) (ICD-10 - R73.01) Aug, Gastroesophageal reflux disease with esophagitis without hemorrhage (ICD-10 - K21.00) Aug, Overweight (BMI 25.0-29.9) (ICD-10 - E66.3) [facility] Other Clinical Note 10-29-2021 Note Date & Type Note Facility 10-29-2021 Note OPERATIVE NOTE PREOPERATIVE DIAGNOSIS: Positive Cologuard. POSTOPERATIVE DIAGNOSIS: Ascending, sigmoid and rectosigmoid polyps. PROCEDURE: Colonoscopy to cecum with cold snare polypectomy for ascending colon polyp and hot snare polypectomy for sigmoid and rectosigmoid polyp. SURGEON: Jocy Bradshaw M.D. ANESTHESIA: Monitored anesthesia care. ESTIMATED BLOOD LOSS: Less than 1 mL. INDICATIONS AND CONSENT: Patient is a 51-year-old male who recently had a positive Cologuard for colorectal screen. Indications, risks, benefits, alternatives of proceeding with colonoscopy explained extensively to the patient, including the risks of bleeding, colon perforation, anesthetic complications. All of his questions were answered. Informed consent was obtained. PROCEDURE: Patient was brought to the operating room, placed in the left lateral decubitus position. Monitored anesthesia care was provided. Rectal exam was performed which showed no masses or blood. The scope was inserted up the anal canal. Under direct visualization, it was advanced. It was advanced to the cecum where cecal markings were clearly identified. There was noted to be a good prep. Upon withdrawal of the scope, mucosal surfaces were carefully examined. Within the ascending colon, there was noted to be a 5 mm sessile polyp that was removed with cold snare with good hemostasis. Within the sigmoid colon, there was noted to be a 4 mm sessile polyp that was removed with hot snare with good hemostasis, and at the rectosigmoid junction, there was noted to be a 3 mm sessile polyp that was also removed with hot snare with good hemostasis. There were no other mass lesions or polyps. No significant diverticulosis. There were some prominent veins noted in the rectum upon retroflexion of the scope. The scope was then withdrawn. The patient tolerated the procedure well, was sent to recovery room in good condition. Follow up colonoscopy should be in five years for surveillance, but may change depending on the pathology report. CC: Chris Tafoya D.O. [facility] Signed and Approved by: DR JOCY BRADSHAW . 11/03/2021 12:54:00 [facility] Clinical Note 10-11-2021 Note Date & Type Note Facility 10-11-2021 Note Chief Complaint consultation for positive Cologuard HPI Staff 51 year old male presents on consultation from Dr. Tafoya for positive Cologuard. Denies abdominal or rectal pain. No rectal bleeding or change in bowel habits. Denies nausea or vomiting. No unexplained weight loss. Never had colonoscopy in the past. No known family history of colon cancer. History of Present Illness 51 yo male with h/o htn, referred for positive Cologuard, denies change in bms or blood in stools, no abdominal complaints; no previous colonoscopy or abdominal operations; on baby asa daily, no NSAIDs, no SBE prophylaxis, no fmhx of GI malignancy or IBD. no tobacco use. Review of Systems PHQ Score Initial Depression Screen Score: 0 ROS - Provider Constitutional: no fever, no sweats, no weight loss. Eyes: no glasses, no blurred vision, no visual loss. ENMT: no dentures, no hoarseness, no swallowing difficulties, no hearing loss, no ear infection(s), no nose bleeds. Cardiovascular: normal blood pressure, no chest pain, regular heartbeat, no heart murmur. Respiratory: no shortness of breath, no cough, no asthma, no wheezing. Gastrointestinal: no nausea, no vomiting, no diarrhea, no constipation, no blood in stool, no change in bowel habits, no abdominal pain, no hepatitis. Genitourinary: no kidney stones, no urine infection, no dysuria. Musculoskeletal: no pain, no weakness. Skin: no changing moles, no rash, no skin lumps. Neurologic: no seizures, no epilepsy, no headache. Psychiatric: no emotional or psychiatric problem. Heme/Lymph: no bleeding problems, no anemia, no blood clots, no transfusions. Allergy/Immunologic: no swollen lymph nodes/glands, no IV drug abuse. Other: Additional ROS info: Except as noted in the above Review of Systems and in the History of Present Illness, all other systems have been reviewed and are negative or noncontributory. Physical Exam Vitals & Measurements T: 36.5 ?C(Temporal Artery) HR: 72(Peripheral) RR: 16 BP: 112/80 HT: 187.9 cm HT: 187.9 cm WT: 99 kg WT: 99.0 kg BMI: 28.04 HEENT: normal conjunctiva, sclera clear, no scleral icterus, EOM intact, PERRLA, oral mucosa moist without lesions. Neck: trachea midline, no mass, symmetric, no thyromegaly or nodules, no adenopathy Respiratory: lungs CTA, respirations non labored. Cardiovascular: regular rate and rhythm, no murmur, no pedal edema or varicosities. Gastrointestinal: soft, non distended, no tenderness, no masses, no palpable hernias, diastasis recti no, no hepatosplenomegaly; normal bs Lymphatic: no cervical adenopathy, Musculoskeletal: normal gait, digits and nails without infection, nodes, cyanosis, clubbing. Skin: no rashes, no lesions, no ulcers, no subcutaneous nodules, induration. Psychiatric/Neuro: oriented to time, place, person, judgement normal, affect appropriate for age, insight intact, no focal deficits. Tests: labs reviewed, review of old records completed, Discussed surgical options, risks, and possible complications with patient. Assessment/Plan 1. Positive colorectal cancer screening using Cologuard test (R19.5: Other fecal abnormalities) plan colonoscopy under anesthesia, informed consent obtained. Follow-up No qualifying data available Problem List/Past Medical History Ongoing BMI 28.0-28.9,adult Borderline learning disability Chronic headaches HTN (hypertension) Major depressive disorder Positive colorectal cancer screening using Cologuard test Seasonal allergic rhinitis Historical No qualifying data Procedure/Surgical History None. Medications aspirin 81 mg Oral EC Tab, 81 mg= 1 tab(s), Oral, Daily DilTIAZem (Eqv-Tiazac) 240 mg/24 hours oral capsule, extended release, 240 mg= 1 cap(s), Oral, Daily famotidine 10 mg oral tablet, 10 mg= 1 tab(s), Oral, Daily niacin 500 mg oral tablet, 500 mg= 1 tab(s), Oral, Daily Allergies No Known Allergies No Known Medication Allergies Social History Alcohol - Denies Alcohol Use, 10/07/2021 Substance Abuse - Denies Substance Abuse, 10/07/2021 Tobacco Never (less than 100 in lifetime) Tobacco Use:. Never Smokeless Tobacco Use:., 10/07/2021 Family History CAD - Coronary artery disease: Father. Diabetes mellitus type 2: Father. Hypertension: Mother. Immunizations Vaccine Date Status influenza virus vaccine, inactivated 05/2021 Recorded [facility] Comment on above: Result Comment: Elec tronically Signed By: DOMENIC WEST, Jocy Garcia\Date and Time Signed: 10/11/21 10:03 EST Evaluation note Note Date & Type Note Facility Evaluation note No Information [facility] [employer] Other History general Narrative - Reported Note Date & Type Note Facility History general Narrative - Reported Type Medical History Benign essential HTN Medical History Myalgia, other site Medical History Suspected COVID-19 v irus infection Medical History Borderline intellect ual functioning Medical History Epigastric abdominal pain Medical History Positive colorectal cancer screening using Cologuard test Medical History Family history of co ronary artery disease Medical History Acute non intractabl e tension-type headache Medical History Daily headache Medical History Body mass index (BMI ) of 25.0 to 29.9 Medical History IFG (impaired fasting glucose) Medical History Seasonal allergic rhinitis Medical History Essential (primary) hypertension Medical History Intermittent palpitations Medical History Depression, major, r ecurrent, mild Surgical History Colonoscopy 10/30/2021 Hospitalization History see surgical history [facility] Other Summary Purpose Family History No Family History Records FoundNo Family History Records Found Advance Directives No Advanced Directives Records FoundNo Advanced Directives Records Found Additional Source Comments (unrecognized sect ion and content) No Status Records FoundNo Status Records Found INFORMATION SOURCE (unrecogn ized section and content) DATE CREATED AUTHOR 11/09/2021 Wil[facility] DATE CREATED AUTHOR AUTHOR'S ORGANIZ ATION 09/28/2022 [facility] REASON FOR VISIT (unrecogniz ed section and content) WellnessHeadaches/ Stomach4 month Follow upAllergy ShotBP checkNot feeling wellNauseanausealab/us resultsNo InformationWellness FOR RECORDS PERTAINING TO PATIENTS WHO ARE OR HAVE BEEN ENROLLED IN A CHEMICAL DEPENDENCY/SUBSTANCEABUSE PROGRAM, SOME INFORMATION MAY BE OMITTED. This clinical summary was aggregated from multiple sources. Caution should be exercised in using it in the provision of clinical care. This summary normalizes information from multiple sources, and as a consequence, information in this document may materially change the coding, format and clinical context of patient data. In addition, data may be omitted in some cases. CLINICAL DECISIONS SHOULD BE BASED ON THE PRIMARY CLINICAL RECORDS. [email or web address] provides no warranty or guarantee of the accuracy or completeness of information in this document.
[2023-09-18 10:24] LABS: Basophils Percent Auto 0.3 % (0.2-2.0); Eosinophils Absolute Auto 0.1 10^3/uL (0.0-0.7); Eosinophils Percent Auto 1.7 % (0.9-7.0); Hematocrit 47.4 % (42.0-54.0); Hemoglobin 15.7 g/dL (14.0-18.0); Immature Granulocytes Abs Auto 0.02 10^3/uL (0.00-0.03); Immature Granulocytes Pct Auto 0.3 % (0.0-0.5); Lymphocytes Absolute Auto 1.8 10^3/uL (1.2-3.8); Mean Corpuscular HGB Conc 33.1 g/dL (29.9-35.2); Mean Corpuscular Hemoglobin 30.3 pg (25.9-34.0); Mean Corpuscular Volume 91.5 fL (80.0-94.0); Mean Platelet Volume 10.4 fL (9.5-13.5); Monocytes Absolute Auto 0.5 10^3/uL (0.3-0.8); Monocytes Percent Auto 8.6 % (1.7-12.0); Neutrophils Absolute Auto 3.5 10^3/uL (1.4-6.5); Neutrophils Percent Auto 58.1 % (43.0-75.0); Platelet Count 222 10^3/uL (150-450); Red Blood Count 5.18 10^6/uL (4.70-6.10); Red Cell Distribution Width 11.9 % (11.0-15.0); White Blood Count 5.9 10^3/uL (4.0-11.0)
[2023-09-18 11:23] LABS: Alanine Aminotransferase 36 U/L (16-63); Albumin Globulin Ratio 1.2; Albumin Level 3.9 g/dL (3.4-5.0); Alkaline Phosphatase 68 U/L (46-116); Anion Gap 9.4; Aspartate Amino Transferase 20 U/L (15-37); Bilirubin Total 0.5 mg/dL (0.2-1.0); Calcium 8.8 mg/dL (8.5-10.1); Carbon Dioxide 31.7 mmol/L (21.0-32.0); Chloride 104 mmol/L (98-107); Chol HDL Ratio 4.6; Cholesterol 160 mg/dL (<=200); Estimated GFR (African America >60 (>=60); Estimated GFR (Non-African Ame >60 (>=60); Globulin 3.2 g/dL; Glucose 114 mg/dL (74-106); HDL Cholesterol 35 mg/dL (40-60); Potassium 4.1 mmol/L (3.5-5.1); Sodium 141 mmol/L (136-145); Total Protein 7.1 g/dL (6.4-8.2); Triglycerides 122 mg/dL (<=150); VLDL CHOLESTEROL 24.4 mg/dL
[2023-09-18 13:02] LABS: Prostate Specific Antigen Scrn 2.63 ng/mL (<=4.00)
== END 2023-09-18 09:26 | disposition home or self-care (01) ==
PROVIDERS: PCP Internal Medicine; Visit Provider Internal Medicine
DX: Z00.00 Encounter for general adult medical examination without abnormal findings (principal); Z12.5 Encounter for screening for malignant neoplasm of prostate
CPT/HCPCS: 36415; 80053; 80061; 85025; G0103

== ENCOUNTER 2024-10-18 16:08 | Outpatient (OUT) | payer BC, SELFPAY ==
--- OUTSIDE RECORDS SUMMARY | 2024-10-18 16:14 | XMS_ITS | CCD ---
Author Organization [facility] Care Team Providers Care Wringer And Setter Name Role Phone DOMENIC, DR SANDRA Admitting Unavailable NILL, DR SANDRA [...] Unavailable Ball, Octavio Unavailable Pati Xiong Unavailable OCTAVIO CARDONA Primary Care Physician Jocy BRADSHAW Attending Unavailable Allergies Allergy Classification Reported Allergen(s) Allergy Type Date of Onset Reaction(s) Facility (1 source) patient allergy list reviewed by nurse or physicia Propensity to adverse reactions 8 Comment:Done AdvanDx Other (1 source) No Known Medication Allergies; Translations: [No Known Medication Allergies] Propensity to adverse reactions (disorder) [facility] Repository Medications Current Medications Medication Drug Class(es) Dates Sig (Normalized) Sig (Original) aspirin 81 mg chewable tablet (18 sources) Platelet Aggregation Inhibitor, Nonsteroidal Anti-inflammatory Drug Start: 01-14-2024 take 1 tablet by mouth once daily Aspirin 81 mg tablet,chewable Active 81 MG PO Daily January 13, 2024 11:00pm Start: 10-03-2021 take 1 tablet by shola th once daily aspirin 81 mg Oral EC Tab 81 mg = 1 tab(s), Oral, Daily, Refills(s) 0 Start Date: 10/03/21 Status: Ordered take 1 tablet by shola th every twenty-four hours Aspirin 81 81 MG 1 tablet Orally Once a day Active take 1 tablet by shola th once daily Aspirin 81 81 MG 1 tablet Orally Once a day Active atenolol 50 mg oral tablet (19 sources) beta-Adrenergic Reuben Start: 10-03-2024 take 1 tablet by mouth once daily atenolol 50 mg Tab 50 mg = 1 tab(s), Oral, Daily, Refills(s) 0 Start Date: 10/03/24 Status: Ordered Start: 02-29-2024 take 1 tablet by shola th once daily Atenolol 50 mg tablet Active 0 .ROUTE .COMPLEX February 29, 2024 6:33am TAKE 1 TABLET BY MOUTH EVERY DAY Start: 01-14-2024 End: 02-29-2024 take 1 tablet by mouth once daily Atenolol 50 mg tablet Discontinued 50 MG PO Daily January 13, 2024 11:00pm February 29, 2024 6:34am Start: 05-10-2023 take 1 tablet by shola th every twenty-four hours Atenolol 50 MG 1 tablet Orally Once a day for 30 days Replaces Diltiazem Apr, Active cyproheptadine hydrochloride 4 mg oral tablet (20 sources) Start: 09-13-2024 take 2 mg by mouth once daily at bedtime Cyproheptadine 4 mg tablet Active 2 MG PO Daily at bedtime September 13, 2024 4:42pm Start: 12-06-2023 End: 09-13-2024 take 1 tablet by mouth once daily at bedtime Cyproheptadine 4 mg tablet Discontinued 0 .ROUTE .COMPLEX May 21, 2024 5:00pm September 13, 2024 4:42pm TAKE 1 TABLET BY MOUTH EVERYDAY AT BEDTIME Start: 12-06-2023 End: 12-06-2023 take 1 tablet by mouth once daily at bedtime Cyproheptadine 4 mg tablet Discontinued 4 MG PO Daily at bedtime December 05, 2023 11:00pm December 06, 2023 5:23pm Start: 05-10-2023 take 1 tablet by shola th once at bedtime Cyproheptadine HCl 4 MG 1 tablet Orally q HS for 30 days Apr, Active 24 hr dilTIAZem hydrochloride 240 mg extended release oral capsule (4 sources) Calcium Channel Reuben take 1 capsule by mouth every twenty-four hours dilTIAZem HCl ER 240 MG 1 capsule Orally Once a day Active DilTIAZem (Eqv-Tiazac) 240 mg/24 hours oral capsule, extended release (1 source) Start: DilTIAZem (Eqv-Tiazac) 240 mg/24 hours oral capsule, extended release 240 mg = 1 cap(s), Oral, Daily, Refills(s) 0 Start Date: 10/03/21 Status: Ordered escitalopram 10 mg oral tablet (2 sources) Serotonin Reuptake Inhibitor Start: 025 take 1 tablet by mouth once daily escitalopram 10 mg Tab 10 mg = 1 tab(s), Oral, Daily, Refills(s) 0 Start Date: 10/03/24 Status: Ordered etodolac 400 mg oral tablet (4 sources) Nonsteroidal Anti-inflammatory Drug Start: take 1 tablet by mouth every twelve hours Etodolac 400 MG 1 tablet with food Orally Twice a day for 7 days Sep, Active niacin 500 mg oral tablet (12 sources) Nicotinic Acid Start: take 1 tablet by mouth once daily niacin 500 mg oral tablet 500 mg = 1 tab(s), Oral, Daily, Refills(s) 0 Start Date: 10/03/21 Status: Ordered omeprazole 40 mg delayed release oral capsule (18 sources) Proton Pump Inhibitor Start: take 1 capsule by mouth once daily omeprazole 40 mg Cap-DR 40 mg = 1 cap(s), Oral, Daily, Refills(s) 0 Start Date: 10/03/24 Status: Ordered Start: 01-14-2024 Omeprazole 40 mg capsule,delayed release(DR/EC) Active 0 .ROUTE .COMPLEX 90 January 14, 2024 7:40am TAKE 1 CAPSULE BY MOUTH EVERY DAY 30 MINUTES BEFORE MORNING MEAL Start: 01-14-2024 End: 01-14-2024 take 1 capsule by mouth once daily Omeprazole 40 mg capsule,delayed release(DR/EC) Discontinued 40 MG PO Daily January 13, 2024 11:00pm January 14, 2024 7:40am Start: 06-25-2023 take 1 capsule by mo [facility] once daily Omeprazole 40 MG 1 capsule 30 minutes before morning meal Orally Once a day for 30 days Jun, Active Completed/Discontinued Medications Medication Drug Class(es) Dates Sig (Normalized) Sig (Original) famotidine 10 mg oral tablet (18 sources) Histamine-2 Receptor Antagonist Start: 10-03-2021 End: 09-13-2024 take 1 tablet by mouth once daily Famotidine 10 mg tablet Discontinued 10 MG PO Daily January 13, 2024 11:00pm September 13, 2024 4:42pm ondansetron 4 mg oral tablet (5 sources) [...] sources) Epigastric pain; Translations: [Epigastric pain] Episodic Anxiety disorders (2 sources) Generalized anxiety disorder; Translations: [Generalized anxiety disorder] 09-13-2024 Chronic Cardiac dysrhythmias (20 sources) Intermittent palpitations; Translations: [Palpitations] Episodic Developmental disorders (3 sources) Developmental academic disorder; Translations: [Developmental disorder of scholastic skills, unspecified] Onset: 06-22-2016 Chronic Developmental disorders (12 sources) Borderline intellectual disability; 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] 10-03-2021 Episodic Diabetes mellitus without complication (20 sources) Impaired fasting glycemia; Translations: [Impaired fasting glucose] Episodic Disorders of lipid metabolism (3 sources) Pure hypercholesterolemi a; Translations: [Pure hypercholesterolemi a, unspecified] Onset: 05-21-2015 Chronic Esophageal disorders (20 sources) Gastro-esophageal reflux disease with esophagitis; Translations: [Gastroesophageal reflux disease with esophagitis without hemorrhage] 01-16-2024 Chronic Essential hypertension (20 sources) Essential (primary) hypertension; Translations: [Essential hypertension] Onset: 11-03-2021 Chronic Headache; including migraine (20 sources) Tension-type headache; Translations: [Tension-type headache, unspecified, not intractable] Chronic Headache; including migraine (13 sources) Daily headache; Translations: [Daily headache] 10-03-2021 Episodic Malaise and fatigue (1 source) Other fatigue Episodic Mood disorders (18 sources) Mild recurrent major depression; Translations: [Major depressive disorder, recurrent, mild] Onset: 06-22-2016 09-13-2024 Chronic Nausea and vomiting (1 source) Nausea Episodic Other and unspecified benign neoplasm (2 sources) History of polyp of colon; Translations: [Personal history of adenomatous and serrated colon polyps] Onset: 10-11-2024 Episodic Other and unspecified benign neoplasm (1 source) Adenomatous polyp of colon 11-04-2021 Episodic Other connective tissue disease (12 sources) [...] nutritional; endocrine; and metabolic disorders (2 sources) Overweight; Translations: [Overweight] 10-11-2024 Episodic Other nutritional; endocrine; and metabolic disorders (1 source) Overweight in adulthood with body mass index of 25 or more but less than 30 10-11-2024 Episodic Other screening for suspected conditions (not mental disorders or infectious disease) (7 sources) Encounter for screening for malignant neoplasm of prostate; Translations: [Electrocardiogram abnormal] Onset: 09-28-2022 Resolved: 01-07-2021 Episodic Other upper respiratory disease (20 sources) Seasonal allergic rhinitis; Translations: [Other seasonal allergic rhinitis] 04-19-2024 Chronic Other upper respiratory disease (11 sources) [...] the circulatory system] Episodic Residual codes; unclassified (4 sources) Transient altered mental status; Translations: [Disorientation, unspecified] 03-27-2024 Episodic Residual codes; unclassified (2 sources) Disorientation, unspecified; Translations: [Unspecified psychosis] 03-27-2024 Episodic Unclassified (4 sources) CONTACT W/AND (SUSP) [...] Resolved: 01-07-2021 Episodic Other aftercare (1 source) senior care (current) use of aspirin; Translations: [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 CURRENT USE OF ASPIRIN] Onset: 11-03-2021 [...] Name Value Interpretation Reference Range Facil ity Ambulatory Visit Summaryon 0 10-11-2024 Ambulatory Visit Summary Ambulatory Visit Summary JOCY MICHAUD :1970 Visit Date:10/11/2024 Ambulatory Visit Instructions Your Diagnosis Personal history of adenomatous and serrated colon polyps Your Care Team Attending Physician - Jocy BRADSHAW MD Primary Care Physician - BRENDAN HILLMAN OCTAVIO This Is Your Medications List Contact prescribing physician if questions or concerns aspirin (aspirin 81 mg Oral EC Tab) atenolol (atenolol 50 mg Tab) diltiazem (DilTIAZem (Eqv-Tiazac) 240 mg/24 hours oral capsule, extended release) escitalopram (escitalopram 10 mg Tab) famotidine (famotidine 10 mg oral tablet) niacin (niacin 500 mg oral tablet) omeprazole (omeprazole 40 mg Cap-DR) Procedures Performed Colonoscopy (10/29/2021). Discharge Vitals Heart Rate (Peripheral) 72 Respiratory Rate 16 Blood Pressure 114/70 Height 188 cm Height 74 in Weight 91.9 kg Weight 202.605 lb BMI 26 Medications What How Much When Instructions Unchanged aspirin (aspirin 81 mg Oral EC Tab) 1 Tablets By Mouth Every day Contact prescribing physician if questions or concerns Unchanged atenolol (atenolol 50 mg Tab) 1 Tablets By Mouth Every day Contact prescribing physician if questions or concerns Unchanged diltiazem (DilTIAZem (Eqv-Tiazac) 240 mg/ 24 hours oral capsule, extended release) 1 Capsules By Mouth Every day Contact prescribing physician if questions or concerns Unchanged escitalopram (escitalopram 10 mg Tab) 1 Tablets By Mouth Every day Contact prescribing physician if questions or concerns Unchanged famotidine (famotidine 10 mg oral tablet) 1 Tablets By Mouth Every day Contact prescribing physician if questions or concerns Unchanged niacin (niacin 500 mg oral tablet) 1 Tablets By Mouth Every day Contact prescribing physician if questions or concerns Unchanged omeprazole (omeprazole 40 mg Cap-DR) 1 Capsules By Mouth Every day Contact prescribing physician if questions or concerns Allergies No Known Allergies No Known Medication Allergies Problems Ongoing - Any problem that you are currently receiving treatment for. BMI 26.0-26.9,adult Borderline learning disability Chronic headaches HTN (hypertension) Major depressive disorder Overweight Personal history of adenomatous and serrated colon polyps Positive colorectal cancer screening using Cologuard test Seasonal allergic rhinitis Tubulovillous adenoma of colon Patient Survey You may receive a survey via text or e-mail asking about your office visit. Please share your experience with us by completing your survey. We appreciate your feedback and thank you for choosing us for your care. Lauri [facility] Ambulatory Visit Summary Ambulatory Visit Summary JOCY MICHAUD :1970 Visit Date:10/11/2024 Ambulatory Visit Instructions Your Diagnosis Personal history of adenomatous and serrated colon polyps Your Care Team Attending Physician - DOMENIC WEST, Jocy Coburn Primary Care Physician - OCTAVIO CARDONA DO This Is Your Medications List Contact prescribing physician if questions or concerns aspirin (aspirin 81 mg Oral EC Tab) atenolol (atenolol 50 mg Tab) diltiazem (DilTIAZem (Eqv-Tiazac) 240 mg/24 hours oral capsule, extended release) escitalopram (escitalopram 10 mg Tab) famotidine (famotidine 10 mg oral tablet) niacin (niacin 500 mg oral tablet) omeprazole (omeprazole 40 mg Cap-DR) Procedures Performed Colonoscopy (10/29/2021). Discharge Vitals Heart Rate (Peripheral) 72 Respiratory Rate 16 Blood Pressure 114/70 Height 188 cm Height 74 in Weight 91.9 kg Weight 202.605 lb BMI 26 Medications What How Much When Instructions Unchanged aspirin (aspirin 81 mg Oral EC Tab) 1 Tablets By Mouth Every day Contact prescribing physician if questions or concerns Unchanged atenolol (atenolol 50 mg Tab) 1 Tablets By Mouth Every day Contact prescribing physician if questions or concerns Unchanged diltiazem (DilTIAZem (Eqv-Tiazac) 240 mg/ 24 hours oral capsule, extended release) 1 Capsules By Mouth Every day Contact prescribing physician if questions or concerns Unchanged escitalopram (escitalopram 10 mg Tab) 1 Tablets By Mouth Every day Contact prescribing physician if questions or concerns Unchanged famotidine (famotidine 10 mg oral tablet) 1 Tablets By Mouth Every day Contact prescribing physician if questions or concerns Unchanged niacin (niacin 500 mg oral tablet) 1 Tablets By Mouth Every day Contact prescribing physician if questions or concerns Unchanged omeprazole (omeprazole 40 mg Cap-DR) 1 Capsules By Mouth Every day Contact prescribing physician if questions or concerns Allergies No Known Allergies No Known Medication Allergies Problems Ongoing - Any problem that you are currently receiving treatment for. BMI 26.0-26.9,adult Borderline learning disability Chronic headaches HTN (hypertension) Major depressive disorder Overweight Personal history of adenomatous and serrated colon polyps Positive colorectal cancer screening using Cologuard test Seasonal allergic rhinitis Tubulovillous adenoma of colon Patient Survey You may receive a survey via text or e-mail asking about your office visit. Please share your experience with us by completing your survey. We appreciate your feedback and thank you for choosing us for your care. Normal [facility] CBC AUTO DIFFon 09-26-2022 BASO # 0.0 103/ul Normal 0.0-0.1 [facility] Comment on above: Performed By: #### C BC #### [facility] [address] [place] [address] Dr. Billy Vann Basophils/100 WBC (Bld) 0.3 % Normal 0.2-2.0 [facility] Comment on above: Performed By: #### C BC #### [facility] [address] [place] [address] Dr. Billy Vann EO # 0.2 103/ul Normal 0.0-0.7 [facility] Comment on above: Performed By: #### C BC #### [facility] [address] [place] [address] Dr. Billy Vann Eosinophils/100 WBC (Bld) 2.6 % Normal 0.9-7.0 [facility] Comment on above: Performed By: #### C BC #### [facility] [address] [place] [address] Dr. Billy Vann Erythrocyte distribution width (RBC) [Ratio] 11.9 % Normal 11.0-15.0 [facility] Comment on above: Performed By: #### C BC #### [facility] [address] [place] [address] Dr. Billy Vann Hematocrit (Bld) [Volume fraction] 51.4 % Normal 42.0-54.0 [facility] Comment on above: Performed By: #### C BC #### [facility] [address] [place] [address] Dr. Billy Vann Hemoglobin (Bld) [Mass/Vol] 16.9 g/dL Normal 14.0-18.0 [facility] Comment on above: Performed By: #### C BC #### [facility] [address] [place] [address] Dr. Billy Vann IG # 0.03 10e3/ul Normal 0.00-0.03 [facility] Comment on above: Performed By: #### C BC #### [facility] [address] [place] [address] Dr. Billy Vann IG % 0.5 % Normal 0.0-0.5 [facility] Comment on above: Performed By: #### C BC #### [facility] [address] [place] [address] Dr. Billy Vann LYMPH # 1.7 103/ul Normal 1.2-3.8 [facility] Comment on above: Performed By: #### C BC #### [facility] [address] [place] [address] Dr. Billy Vann Lymphocytes/100 WBC (Bld) 29.6 % Normal 20.5-60.0 [facility] Comment on above: Performed By: #### C BC #### [facility] [address] [place] [address] Dr. Billy Vann MANUAL DIFF REQ NO Normal [facility] Comment on above: Performed By: #### C BC #### [facility] [address] [place] [address] Dr. Billy Vann MCH (RBC) [Entitic mass] 30.7 pg Normal 25.9-34.0 [facility] Comment on above: Performed By: #### C BC #### [facility] [address] [place] [address] Dr. Billy Vann MCHC (RBC) [Mass/Vol] 32.9 g/dL Normal 29.9-35.2 [facility] Comment on above: Performed By: #### C BC #### [facility] [address] [place] [address] Dr. Billy Vann MCV (RBC) [Entitic vol] 93.5 fL Normal 80.0-94.0 [facility] Comment on above: Performed By: #### C BC #### [facility] [address] [place] [address] Dr. Billy Vann MONO # 0.5 103/ul Normal 0.3-0.8 [facility] Comment on above: Performed By: #### C BC #### [facility] [address] [place] [address] Dr. Billy Vann Monocytes/100 WBC (Bld) 8.5 % Normal 1.7-12.0 [facility] Comment on above: Performed By: #### C BC #### [facility] [address] [place] [address] Dr. Billy Vann NEUT # 3.4 103/ul Normal 1.4-6.5 [facility] Comment on above: Performed By: #### C BC #### [facility] [address] [place] [address] Dr. Billy Vann Neutrophils/100 WBC (Bld) 58.5 % Normal 43.0-75.0 [facility] Comment on above: Performed By: #### C BC #### [facility] [address] [place] [address] Dr. Billy Vann Platelet mean volume (Bld) [Entitic vol] 9.6 fL Normal 9.5-13.5 [facility] Comment on above: Performed By: #### C BC #### [facility] [address] [place] [address] Dr. Billy Vann PLT 196 103/ul Normal 150-450 [facility] Comment on above: Performed By: #### C BC #### [facility] [address] [place] [address] Dr. Billy Vann RBC 5.50 106/ul Normal 4.70-6.10 [facility] Comment on above: Performed By: #### C BC #### [facility] [address] [address] [address] Billy Vann WBC 5.9 103/ul Normal 4.0-11.0 [facility] Comment on above: Performed By: #### C BC #### [facility] [address] [address] [address] Billy Vann LIPID PROFILEon 09-26-2022 CHOL-HDL RATIO NORM SEE BELOW Normal [facility] Comment on above: Result Comment: 3.3 - 4.4 LOW RISK 4.4 - 7.1 AVERAGE RISK 7.1 - 11.0 MODERATE RISK >11.0 HIGH RISK Performed By: #### C MP, LIPID #### [facility] [address] [place] [address] Dr. Billy Vann Cholesterol [Mass/Vol] 180 mg/dL Normal <=200 [facility] Comment on above: Performed By: #### C MP, LIPID #### [facility] [address] [place] [address] Dr. Billy Vann Cholesterol in HDL [Mass/Vol] 39 mg/dL Critically low 40-60 [facility] Comment on above: Performed By: #### C MP, LIPID #### [facility] [address] [place] [address] Dr. Billy Vann Cholesterol in LDL [Mass/Vol] 105.0 mg/dL Normal [facility] Comment on above: Performed By: #### C MP, LIPID #### [facility] [address] [place] [address] Dr. Billy Vann Cholesterol.total/C holesterol in HDL [Mass ratio] 4.6 {ratio} Normal [facility] Comment on above: Performed By: #### C MP, LIPID #### [facility] [address] [place] [address] Dr. Billy Vann HDL NORMAL > or = 60 mg/dl - LO W CARDIOVASCULAR RISK <40 mg/dl - HIGH CARDIOVASCULAR RISK Normal [facility] Comment on above: Performed By: #### C MP, LIPID #### [facility] [address] [place] [address] Dr. Billy Vann LDL CALC NORMAL SEE BELOW Normal [facility] Comment on above: Result Comment: <100 mg/dl OPTIMAL 100 - 129 mg/dl NEAR OR ABOVE OPTIMAL 130 - 159 mg/dl BORDERLINE HIGH 160 - 189 mg/dl HIGH >190 mg/dl VERY HIGH Performed By: #### C MP, LIPID #### [facility] [address] [address] [address] Billy Vann Triglyceride [Mass/Vol] 180 mg/dL Critically high <=150 [facility] Comment on above: Performed By: #### C MP, LIPID #### [facility] [address] [address] [address] Billy Vann VLDL CALC 36.0 mg/dL Normal [facility] Comment on above: Performed By: #### C MP, LIPID #### [facility] [address] [place] [address] Dr. Billy Vann PROF 14(COMP METB)on 023 Albumin [Mass/Vol] 4.0 g/dL Normal 3.4-5.0 [facility] Comment on above: Performed By: #### C MP, LIPID #### [facility] [address] [address] [address] Billy Vann Albumin/Globulin [Mass ratio] 1.3 {ratio} Normal [facility] Comment on above: Performed By: #### C MP, LIPID #### [facility] [address] [address] [address] Billy Vann ALP [Catalytic activity/Vol] 64 U/L Normal 46-116 [facility] Comment on above: Performed By: #### C MP, LIPID #### [facility] [address] [address] [address] Billy Vann ALT [Catalytic activity/Vol] 38 U/L Normal 16-63 [facility] Comment on above: Performed By: #### C MP, LIPID #### [facility] [address] [address] [address] Billy Vann Anion gap [Moles/Vol] 10.0 mmol/L Normal [facility] Comment on above: Performed By: #### C MP, LIPID #### [facility] [address] [address] [address] Billy Vann AST [Catalytic activity/Vol] 22 U/L Normal 15-37 [facility] Comment on above: Performed By: #### C MP, LIPID #### [facility] [address] [address] [address] Billy Vann Bilirubin [Mass/Vol] 0.6 mg/dL Normal 0.2-1.0 [facility] Comment on above: Performed By: #### C MP, LIPID #### [facility] [address] [address] [address] Billy Vann Calcium [Mass/Vol] 8.8 mg/dL Normal 8.5-10.1 [facility] Comment on above: Performed By: #### C MP, LIPID #### [facility] [address] [place] [address] Dr. Billy Vann Chloride [Moles/Vol] 103 mmol/L Normal 98-107 [facility] Comment on above: Performed By: #### C MP, LIPID #### [facility] [address] [address] [address] Billy Vann CO2 [Moles/Vol] 31.2 mmol/L Normal 21.0-32.0 [facility] Comment on above: Performed By: #### C MP, LIPID #### [facility] [address] [address] [address] Billy Vann Creatinine [Mass/Vol] 0.78 mg/dL Normal 0.70-1.30 [facility] Comment on above: Performed By: #### C MP, LIPID #### [facility] [address] [address] [address] Billy Vann EGFR-AF JAPANESE >60 Normal >=60 [facility] Comment on above: Performed By: #### C MP, LIPID #### [facility] [address] [address] [address] Billy Vann EGFR-NON AF JAPANESE >60 Normal >=60 [facility] Comment on above: Performed By: #### C MP, LIPID #### [facility] [address] [address] [address] Billy Vann Globulin (S) [Mass/Vol] 3.1 g/dL Normal [facility] Comment on above: Performed By: #### C MP, LIPID #### [facility] [address] [address] [address] Billy Vann Glucose [Mass/Vol] 122 mg/dL Critically high 74-106 [facility] Comment on above: Performed By: #### C MP, LIPID #### [facility] [address] [address] [address] Billy Vann Potassium [Moles/Vol] 4.2 mmol/L Normal 3.5-5.1 [facility] Comment on above: Performed By: #### C MP, LIPID #### [facility] [address] [place] [address] Dr. Billy Vann Protein [Mass/Vol] 7.1 g/dL Normal 6.4-8.2 [facility] Comment on above: Performed By: #### C MP, LIPID #### [facility] [address] [place] [address] Dr. Billy Vann Sodium [Moles/Vol] 140 mmol/L Normal 136-145 [facility] Comment on above: Performed By: #### C MP, LIPID #### [facility] [address] [place] [address] Dr. Billy Vann Urea nitrogen [Mass/Vol] 10.0 mg/dL Normal 7.0-18.0 [facility] Comment on above: Performed By: #### C MP, LIPID #### [facility] [address] [place] [address] Dr. Billy Vann Urea nitrogen/Creatinine [Mass ratio] 12.8 mg/mg Normal [facility] Comment on above: Performed By: #### C MP, LIPID #### [facility] [address] [place] [address] Dr. Billy Vann Covid-19 PCR (CVDTB)on 05-23 SARS-CoV-2 (COVID-19) RNA YAHIR+probe Ql (Unsp spec) Not detected Normal NOT DETECTED [facility] Comment on above: Result Comment: This test is not yet approved or cleared by the [place] FDA. When there are no FDA-approved or cleared tests available, and other criteria are met, FDA can make tests available under an emergency access mechanism called an Emergency Use Authorization (EUA). The EUA for this test is supported by the Yoga Instructor of Health and Human Service's (HHS's) declaration [...] consistent with SARS-CoV-2. Performed By: #### C [facility] #### [facility] [address] [place] [address] Dr. Billy Vann Covid-19 PCR ([facility])on SARS-CoV-2 (COVID-19) RNA YAHIR+probe Ql (Unsp spec) Not detected Normal NOT DETECTED [facility] Comment on above: Result Comment: This test is not yet approved or cleared by the [place] FDA. When there are no FDA-approved or cleared tests available, and other criteria are met, FDA can make tests available under an emergency access mechanism called an Emergency Use Authorization (EUA). The EUA for this test is supported by the [place] of Health and Human Service's (HHS's) declaration [...] consistent with SARS-CoV-2. Performed By: #### C [facility] #### [facility] [address] [place] [address] Dr. Billy Vann Vital Signs Date Time Vital Sign Value Performing Clinician Facility 10-11-2024 15:26-0500 Blood Pressure Location [employer] [facility] 10-11-2024 15:26-0500 Diastolic blood pressure 70 mm[Hg] [employer] [facility] 10-11-2024 15:26-0500 Heart rate 72 /min [employer] 10-11-2024 15:26-0500 Respiratory rate 16 /min [employer] 10-11-2024 15:26-0500 Systolic blood pressure 114 mm[Hg] [employer] 10-03-2024 15:56-0500 Body height 185.42 cm [facility] 10-03-2024 15:56-0500 Body mass index (BMI) [Ratio] 26.5 kg/m2 [facility] 10-03-2024 15:56-0500 Body weight 91.28 kg [facility] 10-03-2024 15:56-0500 Diastolic blood pressure 75 mm[Hg] [facility] 10-03-2024 15:56-0500 Heart rate 74 /min [facility] 10-03-2024 15:56-0500 Respiratory rate 12 /min [facility] 10-03-2024 15:56-0500 Systolic blood pressure 108 mm[Hg] [facility] 09-13-2024 15:49-0500 Body height 185.42 cm [facility] 09-13-2024 15:49-0500 Body mass index (BMI) [Ratio] 26.5 kg/m2 [facility] 09-13-2024 15:49-0500 Body weight 91.22 kg [facility] 09-13-2024 15:49-0500 Diastolic blood pressure 86 mm[Hg] [facility] 09-13-2024 15:49-0500 Heart rate 89 /min [facility] 09-13-2024 15:49-0500 Respiratory rate 12 /min [facility] 09-13-2024 15:49-0500 Systolic blood pressure 121 mm[Hg] [facility] 05-24-2024 15:36-0400 Body height 185.42 cm [facility] 05-24-2024 15:36-0400 Body mass index (BMI) [Ratio] 25.6 kg/m2 [facility] 05-24-2024 15:36-0400 Body weight 88.11 kg [facility] 05-24-2024 15:36-0400 Diastolic blood pressure 80 mm[Hg] [facility] 05-24-2024 15:36-0400 Heart rate 81 /min [facility] 05-24-2024 15:36-0400 Respiratory rate 12 /min [facility] 05-24-2024 15:36-0400 Systolic blood pressure 123 mm[Hg] [facility] 03-27-2024 15:55-0400 Body height 185.42 cm [facility] 03-27-2024 15:55-0400 Body mass index (BMI) [Ratio] 25.4 kg/m2 [facility] 03-27-2024 15:55-0400 Body weight 87.54 kg [facility] 03-27-2024 15:55-0400 Diastolic blood pressure 77 mm[Hg] [facility] 03-27-2024 15:55-0400 Heart rate 91 /min [facility] 03-27-2024 15:55-0400 Respiratory rate 12 /min [facility] 03-27-2024 15:55-0400 Systolic blood pressure 112 mm[Hg] [facility] 01-19-2024 16:22-0400 Body height 185.42 cm [facility] 01-19-2024 16:22-0400 Body mass index (BMI) [Ratio] 26.2 kg/m2 [facility] 01-19-2024 16:22-0400 Body weight 90.37 kg [facility] 01-19-2024 16:22-0400 Diastolic blood pressure 72 mm[Hg] [facility] 01-19-2024 16:22-0400 Heart rate 76 /min [facility] 01-19-2024 16:22-0400 Respiratory rate 12 /min [facility] 01-19-2024 16:22-0400 Systolic blood pressure 108 mm[Hg] [facility] 09-13-2023 15:30-0500 Body height 185.42 cm Cotavio Ball Other [facility] [employer] Other 09-13-2023 15:30-0500 Body mass index (BMI) [Ratio] 28.07 kg/m2 Octavio Ball Other [facility] [employer] Other 09-13-2023 15:30-0500 Body weight 96.53 kg Octavio Ball Other [facility] [employer] Other 09-13-2023 15:30-0500 Diastolic blood pressure 75 mm[Hg] Octavio Ball Other [facility] [employer] Other 09-13-2023 15:30-0500 Respiratory rate 12 /min Octavio Ball Other [facility] [employer] Other 09-13-2023 15:30-0500 Systolic blood pressure 105 mm[Hg] Octavio Ball Other [facility] [employer] Other 06-25-2023 14:00-0400 Body height 185.42 cm Octavio Ball Other [facility] [employer] Other 06-25-2023 14:00-0400 Body mass index (BMI) [Ratio] 28.49 kg/m2 Octavio Ball Other [facility] Other 06-25-2023 14:00-0400 Body weight 97.98 kg Octavio Ball Other [facility] Other 06-25-2023 14:00-0400 Diastolic blood pressure 82 mm[Hg] Octavio Ball Other [facility] Other 06-25-2023 14:00-0400 Respiratory rate 12 /min Octavio Ball Other [facility] Other 06-25-2023 14:00-0400 Systolic blood pressure 117 mm[Hg] Octavio Ball Other [facility] Other 12-30-2022 16:15-0400 Body height 185.42 cm Octavio Ball Other [facility] Other 12-30-2022 16:15-0400 Body mass index (BMI) [Ratio] 29.13 kg/m2 Octavio Ball Other [facility] Other 12-30-2022 16:15-0400 Body weight 100.15 kg Octavio Ball Other [facility] Other 12-30-2022 16:15-0400 Diastolic blood pressure 91 mm[Hg] Octavio Ball Other [facility] Other 12-30-2022 16:15-0400 Respiratory rate 12 /min Octavio Ball Other [facility] Other 12-30-2022 16:15-0400 Systolic blood pressure 134 mm[Hg] Octavio Ball Other [facility] Other 10-09-2022 13:45-0500 Body height 185.42 cm Octavio Ball Other [facility] Other 10-09-2022 13:45-0500 Body mass index (BMI) [Ratio] 29.21 kg/m2 Octavio Ball Other [facility] Other 10-09-2022 13:45-0500 Body weight 100.43 kg Octavio Ball Other [facility] Other 10-09-2022 13:45-0500 Diastolic blood pressure 78 mm[Hg] Octavio Ball Other [facility] Other 10-09-2022 13:45-0500 Respiratory rate 12 /min Octavio Ball Other [facility] Other 10-09-2022 13:45-0500 Systolic blood pressure 122 mm[Hg] Octavio Ball Other [facility] Other 08-25-2022 16:30-0500 Body height 185.42 cm Octavio Ball Other [facility] Other 08-25-2022 16:30-0500 Body mass index (BMI) [Ratio] 28.71 kg/m2 Octavio Ball Other [facility] Other 08-25-2022 16:30-0500 Body weight 98.7 kg Octavio Ball Other [facility] Other 08-25-2022 16:30-0500 Diastolic blood pressure 82 mm[Hg] Octavio Ball Other [facility] Other 08-25-2022 16:30-0500 Respiratory rate 12 /min Octavio Ball Other [facility] Other 08-25-2022 16:30-0500 Systolic blood pressure 122 mm[Hg] Octavio Cardona Other [facility] [employer] Other Encounters Encounter Date Encounter Type Care Provider Facility Start: 10-11-2024 End: 10-11-2024 ambulatory Jocy BRADSHAW Facility:[facility] Start: 10-11-2024 End: 10-11-2024 Patient encounter procedure Jocy Coburn MACRINALeeanna [facility] [place] Start: 10-03-2024 Patient encounter status [facility] Start: 10-03-2024 End: 10-03-2024 ambulatory [facility] Work Phone: Start: 10-03-2024 End: 10-03-2024 Encounter for general adult medical examination without abnormal findings [facility] Start: 10-03-2024 End: 10-03-2024 Patient encounter procedure [facility] Physician [facility] Work Phone: Start: 09-13-2024 End: 09-13-2024 ambulatory [facility] Work Phone: Start: 09-13-2024 End: 09-13-2024 Patient encounter procedure [facility] Physician [facility] Work Phone: Start: 05-24-2024 End: 05-24-2024 ambulatory [facility] Work Phone: Start: 05-24-2024 End: 05-24-2024 Patient encounter procedure [facility] Physician [facility] Work Phone: Start: 04-19-2024 End: 04-19-2024 ambulatory [facility] Work Phone: Start: 04-19-2024 End: 04-19-2024 Patient encounter procedure [facility] Physician [facility] Work Phone: Start: 03-27-2024 End: 03-27-2024 ambulatory [facility] Work Phone: Start: 03-27-2024 End: 03-27-2024 Patient encounter procedure [facility] Work Phone: Start: 01-19-2024 End: 01-19-2024 ambulatory [facility] Work Phone: Start: 01-19-2024 End: 01-19-2024 Patient encounter procedure [facility] Physician [facility] Work Phone: Start: 12-06-2023 Non-patient / Non-visit [facility] Work Phone: Start: 09-13-2023 End: 09-13-2023 ambulatory Octavio Cardona Other [facility] Other Start: 09-13-2023 Encounter for genera l adult medical examination without abnormal findings Octavio Cardona [facility] Start: 09-13-2023 Periodic preventive med est patient 40-64yrs Octavio Cardona [facility] Start: 08-04-2023 End: 08-04-2023 ambulatory Octavio Cardona Other [facility] Other Start: 08-04-2023 Telephone encounter Octavio Cardona FP [facility] Start: 06-28-2023 End: 06-28-2023 ambulatory Octavio Cardona Other [facility] Other Start: 06-28-2023 Telephone encounter Octavio HAYNES [facility] Start: 06-25-2023 End: 06-25-2023 ambulatory Octavio Cardona Other [facility] Other Start: 06-25-2023 Office outpatient vi sit 15 minutes Octavio Cardona [facility] Start: 06-25-2023 Telephone encounter Octavio HAYNES [facility] Start: 06-24-2023 End: 06-24-2023 ambulatory Octavio Cardona Other [facility] Other Start: 06-24-2023 Telephone encounter Octavio Cardona [place] [facility] Start: 05-12-2023 End: 05-12-2023 ambulatory Octavio Cardona Other [facility] Other Start: 05-12-2023 Telephone encounter Octavio Brendan HAYNES [facility] Start: 05-03-2023 End: 05-03-2023 ambulatory Pati Xiong Other [facility] Other Start: 05-03-2023 Nursing evaluation o f patient and report Pati Xiong [facility] Start: 12-30-2022 End: 12-30-2022 ambulatory Octavio Cardona Other [facility] Other Start: 12-30-2022 Office outpatient vi sit 25 minutes Octavio Cardona [facility] Start: 10-09-2022 End: 10-09-2022 ambulatory Octavio Cardona Other [facility] Other Start: 10-09-2022 Office outpatient vi sit 15 minutes Octavio Cardona [facility] Start: 09-28-2022 Encounter for genera l adult medical examination without abnormal findings DR OCTAVIO CARDONA [facility] Start: 09-26-2022 End: 09-27-[address] OCTAVIO CARDONA Facility:[facility] Start: 09-26-2022 End: 09-27-2022 Encounter for general adult medical examination without abnormal findings DR OCTAVIO CARDONA Facility:[facility] Start: 08-25-2022 End: 08-25-2022 ambulatory Octavio Cardona Other [facility] Other Start: 08-25-2022 Patient encounter procedure Octavio Cardona [facility] Start: 08-25-2022 Periodic preventive med est patient 40-64yrs Octavio Cardona [facility] Start: 06-08-2022 End: 06-08-[address] OCTAVIO CARDONA Facility:[facility] Start: 10-29-2021 End: 10-29-[address] JOCY BRADSHAW Facility:[facility] Start: 10-28-2021 Encounter for preprocedural laboratory examination DR JOCY BRADSHAW [facility] Start: 10-25-2021 End: 10-26-[address] JOCY BRADSHAW Facility:[facility] Start: 10-25-2021 End: 10-26-2021 Encounter for preprocedural laboratory examination DR JOCY BRADSHAW Facility:[facility] Start: 07-22-2021 Adult health examination Cristina dillon Tyrese Other [facility] Other Procedures Date Procedure Procedure Detail Performing Clinician Start: 09-26-[address] JOHNNIE BRADSHAW Comment on above: Performed By: #### P SAS #### [facility] [address] [address] [address] Billy Vann Start: 10-29-2021 Colonoscopy Jocy SANTANA Start: 06-22-2016 General examination of patient [facility] Other End: 09-17-2021 Depression screening Patijael Xiong Other Plan of Treatment Date Care Activity Detail Author Comprehensive metabo lic 2000 panel - Serum or Plasma [facility] Immunizations Immunization Date Immunization Notes Care Provider Fa cility 05-24-2024 influenza virus vaccine, unspecified formulation Jocy BRADSHAW [facility] 05-24-2024 influenza, seasonal, injectable, preservative free [facility] 07-06-2022 SARS-CoV-2 (COVID-19 ) [id number] Jocy BRADSHAW [facility] 08-12-2021 COVID-19 Vaccine Pfi zer - Documentation Purposes Only Pati Xiong Other [facility] 07-24-2021 influenza virus vaccine, split virus (incl. purified surface antigen) Pati Xiong Other [facility] Other 07-24-2021 influenza virus vaccine, unspecified formulation [facility] 05-23-2021 influenza virus vaccine, unspecified formulation Jocy BRADSHAW [facility] [place] 01-06-2021 SARS-CoV-2 (COVID-19 ) mRNA BNT-162b2 vax Jocy SCHRADERL [facility] [place] 12-16-2020 SARS-CoV-2 (COVID-19 ) mRNA BNT-162b2 vax Jocy BRADSHAW [facility] [place] 06-06-2020 influenza virus vaccine, split virus (incl. purified surface antigen) Pati Xiong Other [facility] Other 06-06-2020 influenza virus vaccine, unspecified formulation [facility] 05-04-2018 influenza virus vaccine, split virus (incl. purified surface antigen) Pati Xiong Other [facility] Other 05-04-2018 influenza virus vaccine, unspecified formulation [facility] 06-28-2017 tetanus and diphther ia toxoids, adsorbed, preservative free, for adult use (5 Lf of tetanus toxoid and 2 Lf of diphtheria toxoid) Pati Xiong Other [facility] 06-25-2014 influenza virus vaccine, split virus (incl. purified surface antigen) Pati Xiong Other [facility] Other 06-25-2014 influenza virus vaccine, unspecified formulation [facility] 05-31-2013 tetanus and diphther ia toxoids, adsorbed, preservative free, for adult use (5 Lf of tetanus toxoid and 2 Lf of diphtheria toxoid) Pati Xiong Other [facility] Payers Date Payer Category Payer Unknown [id number] [id number] [id number] 1972 Unknown [id number] [id number] [id number] 1972 Unknown [id number] [id number] [id number] 1972 Unknown [id number] [id number] [id number] 1972 Unknown [id number] [id number] 1959 Unknown [id number] Social History Date Type Detail Facility Sex Assigned At [facility] Start: 1970 Sex Assigned At Male F [facility] Tobacco smoking stat [facility] Unknown if ever smoked [facility] Work Phone: Start: 09-13-2024 End: 10-03-2024 Sex Male (finding) [facility] Start: 10-11-2024 Tobacco smoking status Never s moked tobacco (finding) [facility] [place] Functional Status Date Assessment Result Facility 10-11-2024 Functional Status N/A [facility] [place] Clinical Notes 10-29-2021 to 10-11-2024 Note Date & Type Note Facility 10-11-2024 Note General Surgery Offi ce/Clinic Note Chief Complaint consultation for surveillance colonoscopy HPI Staff 54 year old male presents on consultation for surveillance colonoscopy. Denies abdominal or rectal pain. No rectal bleeding or change in bowel habits. Denies nausea or vomiting. No unexplained weight loss. Last colonoscopy completed 10/2021 with ascending villous adenoma. No known family history of colon cancer. History of Present Illness 54 yo male with h/o htn, depression, presents for surveillance colonoscopy, last colonoscopy 10/2021 due to positive Cologuard; had 1 cm tubulovillous adenoma removed from transverse colon, and several hyperplastic polyps removed from sigmoid/rectum; denies change in bms or blood in stools, no abd complaints; no abd operations; on baby asa daily, no NSAID use; no tobacco use; no fmhx of GI malignancy or IBD. Review of Systems PHQ Score Initial Depression Screen Score: 0 SCORE ROS - Provider Constitutional: no fever, no sweats, no weight loss. Eyes: yes glasses, no blurred vision, no visual loss. [...] or noncontributory. Physical Exam Vitals & Measurements HR: 72(Peripheral) RR: 16 BP: 114/70 HT: 74 in HT: 188 cm WT: 91.9 kg WT: 202.605 lb BMI: 26 HEENT: normal conjunctiva, sclera clear, no scleral [...] hepatosplenomegaly; normal bs Lymphatic: no cervical adenopathy, no supraclavicular adenopathy. Musculoskeletal: normal gait, digits and nails without infection, nodes, cyanosis, clubbing. Skin: no rashes, no lesions, no ulcers, no subcutaneous nodules, induration. Psychiatric/Neuro: oriented to time, place, person, judgement normal, affect appropriate for age, insight intact, no focal deficits. Tests: , review of old records completed , Discussed surgical options, risks, and possible complications with patient. Assessment/Plan 1. Personal history of adenomatous and serrated colon polyps (Z86.0101: Personal history of adenomatous and serrated colon polyps) surveillance colonoscopy under anesthesia, informed consent obtained. Follow-up No qualifying data available Problem List/Past Medical History Ongoing BMI 26.0-26.9,adult Borderline learning disability Chronic headaches HTN (hypertension) Major depressive disorder Overweight Personal history of adenomatous and serrated colon polyps Positive colorectal cancer screening using Cologuard test Seasonal allergic rhinitis Tubulovillous adenoma of colon Historical No qualifying data Procedure/Surgical History Colonoscopy (10/29/2021). Medications aspirin 81 mg Oral EC Tab, 81 mg= 1 tab(s), Oral, Daily atenolol 50 mg Tab, 50 mg= 1 tab(s), Oral, Daily DilTIAZem (Eqv-Tiazac) 240 mg/24 hours oral capsule, extended release, 240 mg= 1 cap(s), Oral, Daily escitalopram 10 mg Tab, 10 mg= 1 tab(s), Oral, Daily famotidine 10 mg oral tablet, 10 mg= 1 tab(s), Oral, Daily niacin 500 mg oral tablet, 500 mg= 1 tab(s), Oral, Daily omeprazole 40 mg Cap-DR, 40 mg= 1 cap(s), Oral, Daily Allergies No Known Allergies No Known Medication Allergies Social History Alcohol - Denies Alcohol Use, 10/07/2021 Never., 10/06/2024 Substance Abuse - Denies Substance Abuse, 10/07/2021 Never., 10/06/2024 Tobacco Never (less than 100 in lifetime) Tobacco Use:., 10/11/2024 Family History CAD - Coronary artery disease: Father. Diabetes mellitus type 2: Father. Hypertension: Mother. Immunizations Vaccine Date Status influenza virus vaccine, inactivated 05/24/2024 Recorded SARS-CoV-2 (COVID-19) [id number] 07/06/2022 Recorded SARS-CoV-2 ( (more content not included)... [facility] Comment on above: Result Comment: Elec tronically Signed By: DOMENIC WEST, Jocy Garcia\Date and Time Signed: 10/11/24 15:40 EST 09-13-2024 Evaluation note Diagnosis Onset Date Resolution Essential (primary) hypertension acute September 13 3:27pm WOOD (generalized anxiety disorder) acute September 13, 2024 3:27pm GERD (gastroesophageal reflux disease) acute September 13 3:27pm Major depression acute September 13, 2024 3:27pm Essential (primary) hypertension acute October 03 3:31pm GERD (gastroesophageal reflux disease) acute October 03 3:31pm IFG (impaired fasting glucose) acute October 03 3:31pm Intermittent palpitations acute October 03 3:31pm Major depression acute October 03, 2024 3:31pm Screening PSA (prostate specific antigen) acute October 03, 2024 3:31pm Tension headache acute October 03, 2024 3:31pm Wellness examination acute 2024 3:31pm Screening for colon cancer noneactive October 03 3:31pm [facility] Work Phone: 1(979) 267-440001-22-2024 Evaluation note* Encounter Date Diagnosis Assessment Notes Treatment Notes Treatment Clinical Notes Aug, Primary hypertension (ICD-10 - I10) This patient is instructed to consume a healthy, low-fat, low-salt diet. They are also encouraged to continue exercise to achieve/maintain a normal BMI. Patient is instructed on [...] bedtime. Smaller, frequent meals may be better tolerated.Weight loss if overweight.PPI with any heartburn.Monitor for dysphagia. Aug, Overweight (BMI 25.0-29.9) (ICD-10 [...] - Z00.00) Healthy diet and exercise. Reviewed age-appropriate preventive testing recommended. [facility] Other 11-03-2023 Evaluation note* Encounter Date Diagnosis Assessment Notes Treatment Notes Treatment Clinical Notes Jun, Right upper quadrant abdominal pain (ICD-10 - R10.11) Low fat, bland diet. GBUS and Hepatic pf, Amylase ER for increased pain, N/V or fever Jun, Gastroesophageal ref lux disease with esophagitis without hemorrhage (ICD-10 - K21.00) Morrill, low fat diet. Begin Omeprazole daily Ondansetron as needed for nausea ER for increased pain, N/V/D or fever Jun, Nausea (ICD-10 - R11.0) Blan d diet, small portions. Begin PPI Ondansetron as needed. [facility] Other 09-11-2023 Evaluation note* Encounter Date Diagnosis Assessment Notes Treatment Notes Treatment Clinical Notes Apr, Acute seasonal allergic rhinitis (ICD-10 - J30.2) [facility] Other 05-10-2023 Evaluation note* Encounter Date Diagnosis Assessment Notes Treatment Notes Treatment Clinical Notes December, IFG (impaired fastin g glucose) (ICD-10 - R73.01) This patient is [...] are also encouraged to continue exercise to achieve/maintain a normal BMI. December, Intermittent palpitations (ICD-10 - R00.2) Avoid stimulants, hydrate and keep active/exercise. December, Gastroesophageal reflux disease with esophagitis without hemorrhage (ICD-10 - K21.00) Diet instructions: Smaller portions, avoid eating and laying flat, avoid eating or drinking prior to bedtime. Weight loss. December, Fatigue, unspecified type (ICD-10 - R53.83) [facility] Other 02-17-2023 Evaluation note* Encounter Date Diagnosis Assessment Notes Treatment Notes Treatment Clinical Notes Sep, Migraine without aura and with status migrainosus, not intractable (ICD-10 - G43.001) Patient instructed on consistent meals and sleep routine. Reviewed triggers Initiate NSAIDs Sep, Essential (primary) hypertension (ICD-10 - I10) This patient is instructed to consume a healthy, low-fat, low-salt diet. They are also encouraged to continue exercise to achieve/maintain a normal BMI. [facility] Other 01-03-2023 Evaluation note* Encounter Date Diagnosis Assessment Notes Treatment Notes Treatment Clinical Notes Aug, Annual physical exam (ICD-10 - Z00.00) Aug, Essential (primary) hypertension (ICD-10 - I10) Aug, IFG (impaired fastin g glucose) (ICD-10 - R73.01) Aug, Gastroesophageal ref lux disease with esophagitis without hemorrhage (ICD-10 - K21.00) Aug, Overweight (BMI 25.0-29.9) (ICD-10 - E66.3) [facility] Other 03-09-2022 NoteOPERATIVE NOTE PREOPERATIVE DIAGNOSIS: Positive Cologuard. POSTOPERATIVE DIAGNOSIS: [...] depending on the pathology report. CC: Chris Cardona D.O. [facility] Signed and Approved by: DR JOCY BRADSHAW . 11/03/2021 12:54:00[facility] No data available for this section [facility] [place] [facility] [employer] [facility] Other Evaluation note* Diagnosis Onset Date Resolution Status Essential (primary) hypertension acute GERD (gastroesophageal reflux disease) acute IFG (impaired fasting glucose) acute Intermittent palpitations ac [place] Tension headache acute [facility] Work Phone: Evaluation note* Diagnosis Onset Date Resolution Status Essential (primary) hypertension acute GERD (gastroesophageal reflux disease) acute IFG (impaired fasting glucose) acute Intermittent palpitations ac [place] Tension headache acute Essential (primary) hypertension acute IFG (impaired fasting glucose) acute [facility] Work Phone: Evaluation note* Diagnosis Onset Date Resolution Status Essential (primary) hypertension acute IFG (impaired fasting glucose) acute Intermittent palpitations ac [place] Tension headache acute Transient confusion acute [facility] Work Phone: Evaluation note* Diagnosis Onset Date Resolution Status Essential (primary) hypertension acute IFG (impaired fasting glucose) acute Intermittent palpitations ac [place] Tension headache acute Transient confusion acute Essential (primary) hypertension acute GERD (gastroesophageal reflux disease) acute IFG (impaired fasting glucose) acute Intermittent palpitations ac [place] Tension headache acute [facility] Work Phone: Evaluation noteNo assessment information available [facility] Work Phone: History general Narrative - Reported* Type Description Date Medical History Benign essential HTN Medical History Myalgia, other site Medical History Suspected COVID-19 virus infecti on Medical History Borderline intellectual function ing Medical History Epigastric abdominal pain Medical History Positive colorectal cancer screening using Cologuard test Medical History Family history of coronary arter y disease Medical History Acute non intractable tension-ty pe headache Medical History Daily headache Medical History Body mass index (BMI) of 25.0 to 29.9 Medical History IFG (impaired fasting glucose) Medical History Seasonal allergic rhinitis Medical History Essential (primary) hypertension Medical History Intermittent palpitations Medical History Depression, major, recurrent, mi ld Surgical History Colonoscopy 10/30/2021 Hospitalization History see surgical history [facility] Other Hospital Discharge instructions No data available for this section [facility] [place] Progress note No data available for this section [facility] [place] Summary Purpose Family History No Family History Records Found Relationship Condition Age at Onset Recorded Date/T jeffery father Diabetes mellitus Unknown family member Family history of diabetes mellitus Unkn own Advance Directives No Advanced Directives Records Found Advance Directive Response Recorded Date/ Time Advance Directives No September 15, 2023 2:02pm Advance Directive Response Recorded Date/ Time Advance Directives No September 15, 2023 1:02pm Chief Complaint and Reason for Visit Chief Complaint Amb Documentation 4 month follow up Reason for Visit Essential (primary) hypertension GERD (gastroesophageal reflux disease) IFG (impaired fasting glucose) Intermittent palpitations Tension headache Chief Complaint 4 month follow up difficulty concentrating Reason for Visit Essential (primary) hypertension GERD (gastroesophageal reflux disease) IFG (impaired fasting glucose) Intermittent palpitations Tension headache Essential (primary) hypertension IFG (impaired fasting glucose) Chief Complaint difficulty concentra ting allergy shot Reason for Visit Essential (primary) hypertension IFG (impaired fasting glucose) Intermittent palpitations Tension headache Transient confusion Chief Complaint difficulty concentra ting allergy shot 4 month f/u Reason for Visit Essential (primary) hypertension IFG (impaired fasting glucose) Intermittent palpitations Tension headache Transient confusion Essential (primary) hypertension GERD (gastroesophageal reflux disease) IFG (impaired fasting glucose) Intermittent palpitations Tension headache Chief Complaint Admit Date anxiety September 13, 2024 3 :27pm Chief Complaint Admit Date anxiety September 13, 2024 3 :27pm Wellness October 03, 2024 3:31pm Reason for Visit Admit Date Essential (primary) hypertension September 13, 2024 3:27pm WOOD (generalized anxiety disorder) Janua ry 2024 3:27pm GERD (gastroesophageal reflux disease) J anuary 2024 3:27pm Major depression September 13, 2024 3 :27pm Essential (primary) hypertension Februar y 2024 3:31pm GERD (gastroesophageal reflux disease) F ebruary 2024 3:31pm IFG (impaired fasting glucose) October 03, 2024 3:31pm Intermittent palpitations October 03, 2024 3:31pm Major depression October 03, 2024 3:31pm Screening PSA (prostate specific antigen ) October 03, 2024 3:31pm Tension headache October 03, 2024 3:31pm Wellness examination October 03, 2024 3:31pm Screening for colon cancer September 3:31pm Additional Source Comments (unrecognized sect ion and content) No Status Records FoundNo Status Records Found INFORMATION SOURCE (unrecogn ized section and content) DATE CREATED AUTHOR 09/28/2022 [facility] DATE CREATED AUTHOR AUTHOR'S ORGANIZ ATION 10/13/2024 [facility] REASON FOR VISIT (unrecogniz ed section and content) WellnessHeadaches/ Stomach4 month Follow upAllergy ShotBP checkNot feeling wellNauseanausealab/us resultsNo InformationWellness Care Teams (unrecognized sec tion and content) Team Status: Active Member Role Status Dates Octavio Cardona DO Primary Care Provider Active Team Status: Inactive Member Role Status Dates Octavio Cardona DO Primary Care Provide r, Attending Provider Active Start: January 19, 2024 End: January 19, 2024 Team Status: Inactive Member Role Status Dates Octavio Ball , DO Primary Care Provide r, Attending Provider Active Start: March 27, 2024 End: March 27, 2024 Team Status: Active Member Role Status Dates Octavio Cardona , DO Primary Care Provider Active Start: December 06, 2023 ISAK Cassidy Attending Provider Active Start : December 06, 2023 Team Status: Inactive Member Role Status Dates Octavio Cardona , DO Primary Care Provide r, Attending Provider Active Start: April 19, 2024 End: April 19, 2024 Team Status: Inactive Member Role Status Dates Octavio Cardona , DO Primary Care Provide r, Attending Provider Active Start: May 24, 2024 End: May 24, 2024 Team Status: Inactive Member Role Status Dates Octavio Cardona , DO Primary Care Provide r, Attending Provider Active Start: September 13, 2024 End: September 13, 2024 Team Status: Inactive Member Role Status Dates Octavio Cardona , DO Primary Care Provide r, Attending Provider Active Start: October 03, 2024 End: October 03, 2024 Goals (unrecognized section and content) Goals may be documented in a n alternate section FOR RECORDS PERTAINING TO PATIENTS WHO ARE [...] BE BASED ON THE PRIMARY CLINICAL RECORDS. [facility] [employer] [facility] provides no warranty or guarantee of the accuracy or completeness of information in this document.
== END 2024-10-18 16:09 | disposition home or self-care (01) ==
LOC: PST 16:08
PROVIDERS: PCP Internal Medicine; Visit Provider Surgery
DX: Z01.818 Encounter for other preprocedural examination (principal); Z86.0101 Personal history of adenomatous and serrated colon polyps

== ENCOUNTER 2024-10-25 06:51 | Day surgery (SDC) | payer BC, SELFPAY ==
--- NOTE | 2024-10-25 | OP_ITS ---
OPERATION DATE: 10/25/2024 PREOPERATIVE DIAGNOSIS: Personal history of colon polyps. Last colonoscopy 2021. POSTOPERATIVE DIAGNOSIS: 7 mm sessile polyp in the ascending colon. PROCEDURE: Colonoscopy to cecum with cold snare polypectomy x1 for ascending colon polyp. SURGEON: Chaitanya Bradshaw M.D. ANESTHESIA: Monitored anesthesia care. ESTIMATED BLOOD LOSS: Less than 1 mL. INDICATIONS AND CONSENT: Patient is a 54-year-old male with a personal history of colon polyps. Last colonoscopy 2021. Presents for surveillance colonoscopy. Indications, risks, benefits, alternatives of proceeding with colonoscopy were explained extensively to the patient, including the risks of bleeding, colon perforation or anesthetic complications. All of his questions were answered. Informed consent was obtained. PROCEDURE: Patient brought to the operating room, placed in the left lateral decubitus position. Monitored anesthesia care was provided. Rectal exam was performed which showed no masses or blood. The scope was inserted into the anal canal. Under direct visualization was advanced. With the aid of abdominal compression, it was advanced to the cecum where cecal markings were clearly identified. There was noted to be a good prep. Upon withdrawal of the scope, mucosal surfaces were carefully examined. There were no mass lesions or inflammatory changes. Within the ascending colon, there was noted to be a sessile, irregular, 7 mm polyp that was removed with cold snare with good hemostasis. The polyp was sent off to Pathology. There were no other mass lesions or polyps. No significant diverticulosis. The scope was retroflexed in the anal canal. There was no significant hemorrhoidal disease. The scope was then withdrawn. Patient tolerated procedure well, was sent to recovery room in good condition.follow up surveillance colonoscopy likely in 3 years, but will depend on pathology report. CC: Patient?s family physician JANELL
--- OUTSIDE RECORDS SUMMARY | 2024-10-25 06:54 | XMS_ITS | CCD ---
Author Organization [facility] Care Team Providers Care Production Supervisor Name Role Phone DOMENIC, DR SANDRA Admitting [...] physicia Propensity to adverse reactions 8 Comment:Done [facility] Other (1 source) No Known Medication Allergies; Translations: [No Known Medication Allergies] Propensity to adverse reactions (disorder) [facility] Repository Medications Current Medications Medication Drug [...] Start: 06-25-2023 take 1 capsule by mo [facility] once daily Omeprazole 40 MG 1 [...] Resolved: 01-07-2021 Episodic Other aftercare (1 source) 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 Lauri [facility] Ambulatory Visit Summary Ambulatory Visit Summary [...] for choosing us for your care. Normal [facility] CBC AUTO DIFFon 09-26-2022 BASO # 0.0 103/ul Normal 0.0-0.1 [facility] Comment on above: Performed By: #### C BC #### [facility] [address] [place] [address] Dr. Billy Vann Basophils/100 WBC (Bld) 0.3 % Normal 0.2-2.0 [facility] Comment on above: Performed By: #### C BC #### [facility] [address] [place] [address] Dr. Billy Vann EO # 0.2 103/ul Normal 0.0-0.7 [facility] Comment on above: Performed By: #### C BC #### [facility] [address] [place] [address] Dr. Billy Vann Eosinophils/100 WBC (Bld) 2.6 % Normal 0.9-7.0 [facility] Comment on above: Performed By: #### C BC #### [facility] [address] [place] [address] Dr. Billy Vann Erythrocyte distribution width (RBC) [Ratio] 11.9 % Normal 11.0-15.0 [facility] Comment on above: Performed By: #### C BC #### [facility] [address] [place] [address] Dr. Billy Vann Hematocrit (Bld) [Volume fraction] 51.4 % Normal 42.0-54.0 [facility] Comment on above: Performed By: #### C BC #### [facility] [address] [place] [address] Dr. Billy Vann Hemoglobin (Bld) [Mass/Vol] 16.9 g/dL Normal 14.0-18.0 [facility] Comment on above: Performed By: #### C BC #### [facility] [address] [place] [address] Dr. Billy Vann IG # 0.03 10e3/ul Normal 0.00-0.03 [facility] Comment on above: Performed By: #### C BC #### [facility] [address] [place] [address] Dr. Billy Vann IG % 0.5 % Normal 0.0-0.5 [facility] Comment on above: Performed By: #### C BC #### [facility] [address] [place] [address] Dr. Billy Vann LYMPH # 1.7 103/ul Normal 1.2-3.8 [facility] Comment on above: Performed By: #### C BC #### [facility] [address] [place] [address] Dr. Billy Vann Lymphocytes/100 WBC (Bld) 29.6 % Normal 20.5-60.0 [facility] Comment on above: Performed By: #### C BC #### [facility] [address] [place] [address] Dr. Billy Vann MANUAL DIFF REQ NO Normal [facility] Comment on above: Performed By: #### C BC #### [facility] [address] [place] [address] Dr. Billy Vann MCH (RBC) [Entitic mass] 30.7 pg Normal 25.9-34.0 [facility] Comment on above: Performed By: #### C BC #### [facility] [address] [place] [address] Dr. iBlly Vann MCHC (RBC) [Mass/Vol] 32.9 g/dL Normal 29.9-35.2 [facility] Comment on above: Performed By: #### C BC #### [facility] [address] [place] [address] Dr. Billy Vann MCV (RBC) [Entitic vol] 93.5 fL Normal 80.0-94.0 [facility] Comment on above: Performed By: #### C BC #### [facility] [address] [place] [address] Dr. Billy Vann MONO # 0.5 103/ul Normal 0.3-0.8 [facility] Comment on above: Performed By: #### C BC #### [facility] [address] [place] [address] Dr. Billy Vann Monocytes/100 WBC (Bld) 8.5 % Normal 1.7-12.0 [facility] Comment on above: Performed By: #### C BC #### [facility] [address] [place] [address] Dr. Billy Vann NEUT # 3.4 103/ul Normal 1.4-6.5 [facility] Comment on above: Performed By: #### C BC #### [facility] [address] [place] [address] Dr. Billy Vann Neutrophils/100 WBC (Bld) 58.5 % Normal 43.0-75.0 [facility] Comment on above: Performed By: #### C BC #### [facility] [address] [place] [address] Dr. Billy Vann Platelet mean volume (Bld) [Entitic vol] 9.6 fL Normal 9.5-13.5 [facility] Comment on above: Performed By: #### C BC #### [facility] [address] [place] [address] Dr. Billy Vann PLT 196 103/ul Normal 150-450 [facility] Comment on above: Performed By: #### C BC #### [facility] [address] [place] [address] Dr. Billy Vann RBC 5.50 106/ul Normal 4.70-6.10 [facility] Comment on above: Performed By: #### C BC #### [facility] [address] [address] [address] Billy Vann WBC 5.9 103/ul Normal 4.0-11.0 [facility] Comment on above: Performed By: #### C BC #### [facility] [address] [address] [address] Billy Vann LIPID PROFILEon 09-26-2022 CHOL-HDL RATIO NORM SEE BELOW Normal [facility] Comment on above: Result Comment: 3.3 - 4.4 LOW RISK 4.4 - 7.1 AVERAGE RISK 7.1 - 11.0 MODERATE RISK >11.0 HIGH RISK Performed By: #### C MP, LIPID #### [facility] [address] [place] [address] Dr. Billy Vann Cholesterol [Mass/Vol] 180 mg/dL Normal <=200 [facility] Comment on above: Performed By: #### C MP, LIPID #### [facility] [address] [place] [address] Dr. Billy Vann Cholesterol in HDL [Mass/Vol] 39 mg/dL Critically low 40-60 [facility] Comment on above: Performed By: #### C MP, LIPID #### [facility] [address] [place] [address] Dr. Billy Vann Cholesterol in LDL [Mass/Vol] 105.0 mg/dL Normal [facility] Comment on above: Performed By: #### C MP, LIPID #### [facility] [address] [place] [address] Dr. Billy Vann Cholesterol.total/C holesterol in HDL [Mass ratio] 4.6 {ratio} Normal [facility] Comment on above: Performed By: #### C MP, LIPID #### [facility] [address] [place] [address] Dr. Billy Vann HDL NORMAL > or = 60 mg/dl - LO W CARDIOVASCULAR RISK <40 mg/dl - HIGH CARDIOVASCULAR RISK Normal [facility] Comment on above: Performed By: #### C MP, LIPID #### [facility] [address] [place] [address] Dr. Billy Vann LDL CALC NORMAL SEE BELOW Normal [facility] Comment on above: Result Comment: <100 mg/dl OPTIMAL 100 - 129 mg/dl NEAR OR ABOVE OPTIMAL 130 - 159 mg/dl BORDERLINE HIGH 160 - 189 mg/dl HIGH >190 mg/dl VERY HIGH Performed By: #### C MP, LIPID #### [facility] [address] [address] [address] Billy Vann Triglyceride [Mass/Vol] 180 mg/dL Critically high <=150 [facility] Comment on above: Performed By: #### C MP, LIPID #### [facility] [address] [address] [address] Billy Vann VLDL CALC 36.0 mg/dL Normal [facility] Comment on above: Performed By: #### C MP, LIPID #### [facility] [address] [place] [address] Dr. Billy Vann PROF 14(COMP METB)on 023 Albumin [Mass/Vol] 4.0 g/dL Normal 3.4-5.0 [facility] Comment on above: Performed By: #### C MP, LIPID #### [facility] [address] [address] [address] Billy Vann Albumin/Globulin [Mass ratio] 1.3 {ratio} Normal [facility] Comment on above: Performed By: #### C MP, LIPID #### [facility] [address] [address] [address] Billy Vann ALP [Catalytic activity/Vol] 64 U/L Normal 46-116 [facility] Comment on above: Performed By: #### C MP, LIPID #### [facility] [address] [address] [address] Billy Vann ALT [Catalytic activity/Vol] 38 U/L Normal 16-63 [facility] Comment on above: Performed By: #### C MP, LIPID #### [facility] [address] [address] [address] Billy Vann Anion gap [Moles/Vol] 10.0 mmol/L Normal [facility] Comment on above: Performed By: #### C MP, LIPID #### [facility] [address] [address] [address] Billy Vann AST [Catalytic activity/Vol] 22 U/L Normal 15-37 [facility] Comment on above: Performed By: #### C MP, LIPID #### [facility] [address] [address] [address] Billy Vann Bilirubin [Mass/Vol] 0.6 mg/dL Normal 0.2-1.0 [facility] Comment on above: Performed By: #### C MP, LIPID #### [facility] [address] [address] [address] Billy Vann Calcium [Mass/Vol] 8.8 mg/dL Normal 8.5-10.1 [facility] Comment on above: Performed By: #### C MP, LIPID #### [facility] [address] [place] [address] Dr. Billy Vann Chloride [Moles/Vol] 103 mmol/L Normal 98-107 [facility] Comment on above: Performed By: #### C MP, LIPID #### [facility] [address] [address] [address] Billy Vann CO2 [Moles/Vol] 31.2 mmol/L Normal 21.0-32.0 [facility] Comment on above: Performed By: #### C MP, LIPID #### [facility] [address] [address] [address] Billy Vann Creatinine [Mass/Vol] 0.78 mg/dL Normal 0.70-1.30 [facility] Comment on above: Performed By: #### C MP, LIPID #### [facility] [address] [address] [address] Billy Vann EGFR-AF RUSSIAN >60 Normal >=60 [facility] Comment on above: Performed By: #### C MP, LIPID #### [facility] [address] [address] [address] Billy Vann EGFR-NON AF RUSSIAN >60 Normal >=60 [facility] Comment on above: Performed By: #### C MP, LIPID #### [facility] [address] [address] [address] Billy Vann Globulin (S) [Mass/Vol] 3.1 g/dL Normal [facility] Comment on above: Performed By: #### C MP, LIPID #### [facility] [address] [address] [address] Billy Vann Glucose [Mass/Vol] 122 mg/dL Critically high 74-106 [facility] Comment on above: Performed By: #### C MP, LIPID #### [facility] [address] [address] [address] Billy Vann Potassium [Moles/Vol] 4.2 mmol/L Normal 3.5-5.1 [facility] Comment on above: Performed By: #### C MP, LIPID #### [facility] [address] [place] [address] Dr. Billy Vann Protein [Mass/Vol] 7.1 g/dL Normal 6.4-8.2 [facility] Comment on above: Performed By: #### C MP, LIPID #### [facility] [address] [place] [address] Dr. Billy Vann Sodium [Moles/Vol] 140 mmol/L Normal 136-145 [facility] Comment on above: Performed By: #### C MP, LIPID #### [facility] [address] [place] [address] Dr. Billy Vann Urea nitrogen [Mass/Vol] 10.0 mg/dL Normal 7.0-18.0 [facility] Comment on above: Performed By: #### C MP, LIPID #### [facility] [address] [place] [address] Dr. Billy Vann Urea nitrogen/Creatinine [Mass ratio] 12.8 mg/mg Normal [facility] Comment on above: Performed By: #### C MP, LIPID #### [facility] [address] [place] [address] Dr. Billy Vann Covid-19 PCR (CVDTB)on 05-23 SARS-CoV-2 (COVID-19) RNA YAHIR+probe Ql (Unsp spec) Not detected Normal NOT DETECTED [facility] Comment on above: Result Comment: This test is not yet approved or cleared by the [place] FDA. When there are no FDA-approved or cleared tests available, and other criteria are met, FDA can make tests available under an emergency access mechanism called an Emergency Use Authorization (EUA). The EUA for this test is supported by the [place] of Health and Human Service's (HHS's) declaration [...] consistent with SARS-CoV-2. Performed By: #### C [facility] #### [facility] [address] [place] [address] Dr. Billy Vann Covid-19 PCR ([facility])on SARS-CoV-2 (COVID-19) RNA YAHIR+probe Ql (Unsp spec) Not detected Normal NOT DETECTED [facility] Comment on above: Result Comment: This test is not yet approved or cleared by the [place] FDA. When there are no FDA-approved or cleared tests available, and other criteria are met, FDA can make tests available under an emergency access mechanism called an Emergency Use Authorization (EUA). The EUA for this test is supported by the [place] of Health and Human Service's (HHS's) declaration [...] consistent with SARS-CoV-2. Performed By: #### C [facility] #### [facility] [address] [place] [address] Dr. Billy Vann Vital Signs Date Time Vital Sign Value Performing Clinician Facility 10-11-2024 15:26-0500 Blood Pressure Location [employer] [facility] 10-11-2024 15:26-0500 Diastolic blood pressure 70 mm[Hg] [facility] 10-11-2024 15:26-0500 Heart rate 72 /min [facility] [employer] [facility] 10-11-2024 15:26-0500 Respiratory rate 16 /min [employer] [facility] 10-11-2024 15:26-0500 Systolic blood pressure 114 mm[Hg] [employer] [facility] 10-03-2024 15:56-0500 Body height 185.42 cm [facility] 10-03-2024 15:56-0500 Body mass index (BMI) [Ratio] 26.5 kg/m2 [facility] 10-03-2024 15:56-0500 Body weight 91.28 kg [facility] 10-03-2024 15:56-0500 Diastolic blood pressure 75 mm[Hg] [facility] 10-03-2024 15:56-0500 Heart rate 74 /min [facility] 10-03-2024 15:56-0500 Respiratory rate 12 /min [facility] 10-03-2024 15:56-0500 Systolic blood pressure 108 mm[Hg] [facility] 09-13-2024 15:49-0500 Body height 185.42 cm [facility] 09-13-2024 15:49-0500 Body mass index (BMI) [Ratio] 26.5 kg/m2 [facility] 09-13-2024 15:49-0500 Body weight 91.22 kg [facility] 09-13-2024 15:49-0500 Diastolic blood pressure 86 mm[Hg] [facility] 09-13-2024 15:49-0500 Heart rate 89 /min [facility] 09-13-2024 15:49-0500 Respiratory rate 12 /min [facility] 09-13-2024 15:49-0500 Systolic blood pressure 121 mm[Hg] [facility] 05-24-2024 15:36-0400 Body height 185.42 cm [facility] 05-24-2024 15:36-0400 Body mass index (BMI) [Ratio] 25.6 kg/m2 [facility] 05-24-2024 15:36-0400 Body weight 88.11 kg [facility] 05-24-2024 15:36-0400 Diastolic blood pressure 80 mm[Hg] [facility] 05-24-2024 15:36-0400 Heart rate 81 /min [facility] 05-24-2024 15:36-0400 Respiratory rate 12 /min [facility] 05-24-2024 15:36-0400 Systolic blood pressure 123 mm[Hg] [facility] 03-27-2024 15:55-0400 Body height 185.42 cm [facility] 03-27-2024 15:55-0400 Body mass index (BMI) [Ratio] 25.4 kg/m2 [facility] 03-27-2024 15:55-0400 Body weight 87.54 kg [facility] 03-27-2024 15:55-0400 Diastolic blood pressure 77 mm[Hg] [facility] 03-27-2024 15:55-0400 Heart rate 91 /min [facility] 03-27-2024 15:55-0400 Respiratory rate 12 /min [facility] 03-27-2024 15:55-0400 Systolic blood pressure 112 mm[Hg] [facility] 01-19-2024 16:22-0400 Body height 185.42 cm [facility] 01-19-2024 16:22-0400 Body mass index (BMI) [Ratio] 26.2 kg/m2 [facility] 01-19-2024 16:22-0400 Body weight 90.37 kg [facility] 01-19-2024 16:22-0400 Diastolic blood pressure 72 mm[Hg] [facility] 01-19-2024 16:22-0400 Heart rate 76 /min [facility] 01-19-2024 16:22-0400 Respiratory rate 12 /min [facility] 01-19-2024 16:22-0400 Systolic blood pressure 108 mm[Hg] [facility] 09-13-2023 15:30-0500 Body height 185.42 cm Octavio Ball Other [facility] Other 09-13-2023 15:30-0500 Body mass index (BMI) [Ratio] 28.07 kg/m2 Octavio Ball Other [facility] Other 09-13-2023 15:30-0500 Body weight 96.53 kg Octavio Ball Other [facility] Other 09-13-2023 15:30-0500 Diastolic blood pressure 75 mm[Hg] Octavio Ball Other [facility] Other 09-13-2023 15:30-0500 Respiratory rate 12 /min Octavio Ball Other [facility] Other 09-13-2023 15:30-0500 Systolic blood pressure 105 mm[Hg] Octavio Ball Other [facility] Other 06-25-2023 14:00-0400 Body height 185.42 cm Octavio Ball Other [facility] Other 06-25-2023 14:00-0400 Body mass index (BMI) [Ratio] 28.49 kg/m2 Octavio Ball Other [facility] Other 06-25-2023 14:00-0400 Body weight 97.98 kg Octavio Ball Other [facility] Other 06-25-2023 14:00-0400 Diastolic blood pressure 82 mm[Hg] Octavio Ball Other [facility] Other 06-25-2023 14:00-0400 Respiratory rate 12 /min Octavio Ball Other [facility] Other 06-25-2023 14:00-0400 Systolic blood pressure 117 mm[Hg] Octavio Ball Other [facility] Other 12-30-2022 16:15-0400 Body height 185.42 cm Octavio Ball Other [facility] Other 12-30-2022 16:15-0400 Body mass index (BMI) [Ratio] 29.13 kg/m2 Octavio Ball Other [facility] Other 12-30-2022 16:15-0400 Body weight 100.15 kg Octavio Ball Other [facility] Other 12-30-2022 16:15-0400 Diastolic blood pressure 91 mm[Hg] Octavio Ball Other [facility] Other 12-30-2022 16:15-0400 Respiratory rate 12 /min Octavio Ball Other [facility] Other 12-30-2022 16:15-0400 Systolic blood pressure 134 mm[Hg] Octavio Ball Other [facility] Other 10-09-2022 13:45-0500 Body height 185.42 cm Octavio Ball Other [facility] Other 10-09-2022 13:45-0500 Body mass index (BMI) [Ratio] 29.21 kg/m2 Octavio Ball Other [facility] Other 10-09-2022 13:45-0500 Body weight 100.43 kg Octavio Ball Other [facility] Other 10-09-2022 13:45-0500 Diastolic blood pressure 78 mm[Hg] Octavio Ball Other [facility] Other 10-09-2022 13:45-0500 Respiratory rate 12 /min Octavio Ball Other [facility] Other 10-09-2022 13:45-0500 Systolic blood pressure 122 mm[Hg] Octavio Ball Other [facility] Other 08-25-2022 16:30-0500 Body height 185.42 cm Octavio Ball Other [facility] Other 08-25-2022 16:30-0500 Body mass index (BMI) [Ratio] 28.71 kg/m2 Octavio Ball Other [facility] Other 08-25-2022 16:30-0500 Body weight 98.7 kg Octavio Ball Other [facility] Other 08-25-2022 16:30-0500 Diastolic blood pressure 82 mm[Hg] Octavio Ball Other [facility] Other 08-25-2022 16:30-0500 Respiratory rate 12 /min Octavio Ball Other [facility] Other 08-25-2022 16:30-0500 Systolic blood pressure 122 mm[Hg] Octavio Cardona Other [facility] Other Encounters Encounter Date Encounter Type Care Provider Facility Start: 10-11-2024 End: 10-11-2024 ambulatory Jocy BRADSHAW Facility:[facility] Start: 10-11-2024 End: 10-11-2024 Patient encounter procedure Jocy Coburn MACRINALeeanna [facility] [place] Start: 10-03-2024 Patient encounter status [facility] Start: 10-03-2024 End: 10-03-2024 ambulatory [facility] Work Phone: Start: 10-03-2024 End: 10-03-2024 Encounter for general adult medical examination without abnormal findings [facility] Start: 10-03-2024 End: 10-03-2024 Patient encounter procedure [facility] Work Phone: Start: 09-13-2024 End: 09-13-2024 ambulatory [facility] Work Phone: Start: 09-13-2024 End: 09-13-2024 Patient encounter procedure [facility] Work Phone: Start: 05-24-2024 End: 05-24-2024 ambulatory [facility] Work Phone: Start: 05-24-2024 End: 05-24-2024 Patient encounter procedure [facility] Work Phone: Start: 04-19-2024 End: 04-19-2024 ambulatory [facility] Work Phone: Start: 04-19-2024 End: 04-19-2024 Patient encounter procedure [facility] Work Phone: Start: 03-27-2024 End: 03-27-2024 ambulatory [facility] Work Phone: Start: 03-27-2024 End: 03-27-2024 Patient encounter procedure [facility] Work Phone: Start: 01-19-2024 End: 01-19-2024 ambulatory [facility] Work Phone: Start: 01-19-2024 End: 01-19-2024 Patient encounter procedure [facility] Work Phone: Start: 12-06-2023 Non-patient / Non-visit [facility] Work Phone: Start: 09-13-2023 End: 09-13-2023 ambulatory Octavio Cardona Other [facility] Other Start: 09-13-2023 Encounter for genera l adult medical examination without abnormal findings Octavio Cardona [facility] Start: 09-13-2023 Periodic preventive med est patient 40-64yrs Octavio Cardona [facility] Start: 08-04-2023 End: 08-04-2023 ambulatory Octavio Cardona Other [facility] Other Start: 08-04-2023 Telephone encounter Octavio Cardona FP [facility] Start: 06-28-2023 End: 06-28-2023 ambulatory Octavio Cardona Other [facility] Other Start: 06-28-2023 Telephone encounter Octavio HAYNES [facility] Start: 06-25-2023 End: 06-25-2023 ambulatory Octavio Cardona Other [facility] Other Start: 06-25-2023 Office outpatient vi sit 15 minutes Octavio Cardona [facility] Start: 06-25-2023 Telephone encounter Octavio HAYNES [facility] Start: 06-24-2023 End: 06-24-2023 ambulatory Octavio Cardona Other [facility] Other Start: 06-24-2023 Telephone encounter Octavio Cardona [place] [facility] Start: 05-12-2023 End: 05-12-2023 ambulatory Octavio Cardona Other [facility] Other Start: 05-12-2023 Telephone encounter Octavio Brendan HAYNES [facility] Start: 05-03-2023 End: 05-03-2023 ambulatory Pati Xiong Other [facility] Other Start: 05-03-2023 Nursing evaluation o f patient and report Pati Xiong [facility] Start: 12-30-2022 End: 12-30-2022 ambulatory Octavio Cardona Other [facility] Other Start: 12-30-2022 Office outpatient vi sit 25 minutes Octavio Cardona [facility] Start: 10-09-2022 End: 10-09-2022 ambulatory Octavio Cardona Other [facility] Other Start: 10-09-2022 Office outpatient vi sit 15 minutes Octavio Cardona [facility] Start: 09-28-2022 Encounter for genera l adult medical examination without abnormal findings DR OCTAVIO CARDONA [facility] Start: 09-26-2022 End: 09-27-[address] OCTAVIO CARDONA Facility:[facility] Start: 09-26-2022 End: 09-27-2022 Encounter for general adult medical examination without abnormal findings DR OTCAVIO CARDONA Facility:[facility] Start: 08-25-2022 End: 08-25-2022 ambulatory Octavio Cardona Other [facility] Other Start: 08-25-2022 Patient encounter procedure Octavio Cardona [facility] Start: 08-25-2022 Periodic preventive med est patient 40-64yrs Octavio Cardona [facility] Start: 06-08-2022 End: 06-08-[address] OCTAVIO CARDONA Facility:[facility] Start: 10-29-2021 End: 10-29-[address] JOCY BRADSHAW Facility:[facility] Start: 10-28-2021 Encounter for preprocedural laboratory examination DR JOCY BRADSHAW [facility] Start: 10-25-2021 End: 10-26-[address] JOCY BRADSHAW Facility:[facility] Start: 10-25-2021 End: 10-26-2021 Encounter for preprocedural laboratory examination DR JOCY BRADSHAW Facility:[facility] Start: 07-22-2021 Adult health examination Cristina dillon Tyrese Other [facility] Other Procedures Date Procedure Procedure Detail Performing Clinician Start: 09-26-[address] JOHNNIE BRADSHAW Comment on above: Performed By: #### P SAS #### [facility] [address] [address] [address] Billy Vann Start: 10-29-2021 Colonoscopy Jocy SANTANA Start: 06-22-2016 General examination of patient Pati Xiong Other End: 09-17-2021 Depression screening Patijael Xiong Other Plan of Treatment Date Care Activity Detail Author Comprehensive metabo lic 2000 panel - Serum or Plasma [facility] Immunizations Immunization Date Immunization Notes Care Provider Fa cility 05-24-2024 influenza virus vaccine, unspecified formulation Jocy BRADSHAW [facility] 05-24-2024 influenza, seasonal, injectable, preservative free [facility] 07-06-2022 SARS-CoV-2 (COVID-19 ) [id number] Jocy BRADSHAW [facility] 08-12-2021 COVID-19 Vaccine Pfi zer - Documentation Purposes Only Pati Xiong Other [facility] 07-24-2021 influenza virus vaccine, split virus (incl. purified surface antigen) Pati Xiong Other [facility] Other 07-24-2021 influenza virus vaccine, unspecified formulation [facility] 05-23-2021 influenza virus vaccine, unspecified formulation Jocy BRADSHAW [facility] 01-06-2021 SARS-CoV-2 (COVID-19 ) mRNA BNT-162b2 vax Jocy SCHRADERL [facility] 12-16-2020 SARS-CoV-2 (COVID-19 ) mRNA BNT-162b2 vax Jocy BRADSHAW [facility] 06-06-2020 influenza virus vaccine, split virus (incl. purified surface antigen) Pati Xiong Other [facility] Other 06-06-2020 influenza virus vaccine, unspecified formulation [facility] 05-04-2018 influenza virus vaccine, split virus (incl. purified surface antigen) Pati Xiong Other [facility] Other 05-04-2018 influenza virus vaccine, unspecified formulation [facility] 06-28-2017 tetanus and diphther ia toxoids, adsorbed, preservative free, for adult use (5 Lf of tetanus toxoid and 2 Lf of diphtheria toxoid) Pati Xiong Other [facility] 06-25-2014 influenza virus vaccine, split virus (incl. purified surface antigen) Pati Xiong Other [facility] Other 06-25-2014 influenza virus vaccine, unspecified formulation [facility] 05-31-2013 tetanus and diphther ia toxoids, adsorbed, preservative free, for adult use (5 Lf of tetanus toxoid and 2 Lf of diphtheria toxoid) Pati Xiong Other [facility] Payers Date Payer Category Payer Unknown [id number] [id number] [id number] 1972 Unknown [id number] [id number] [id number] 1972 Unknown [id number] [id number] [id number] 1972 Unknown [id number] 2.16.84 [id number] 1972 Unknown [id number] [id number] 1959 Unknown [id number] Social History Date Type Detail Facility Sex Assigned At [facility] Start: 1970 Sex Assigned At Male F [facility] Tobacco smoking stat [facility] Unknown if ever smoked [facility] Work Phone: Start: 09-13-2024 End: 10-03-2024 Sex Male (finding) [facility] Start: 10-11-2024 Tobacco smoking status Never s moked tobacco (finding) [facility] [place] Functional Status Date Assessment Result Facility 10-11-2024 Functional Status N/A [facility] [place] Clinical Notes 10-29-2021 to 10-11-2024 Note Date [...] virus vaccine, inactivated 05/24/2024 Recorded SARS-CoV-2 (COVID-19) [id number] 07/06/2022 Recorded SARS-CoV-2 ( (more content not included)... [facility] Comment on above: Result Comment: Elec [...] for colon cancer noneactive October 03 3:31pm [facility] Work Phone: 1(871) 448-619601-22-2024 Evaluation note* Encounter Date Diagnosis Assessment Notes [...] and exercise. Reviewed age-appropriate preventive testing recommended. [facility] Other 11-03-2023 Evaluation note* Encounter Date Diagnosis Assessment Notes Treatment Notes Treatment Clinical Notes Jun, Right upper quadrant abdominal pain (ICD-10 - R10.11) Low fat, bland diet. GBUS and Hepatic pf, Amylase ER for increased pain, N/V or fever Jun, Gastroesophageal ref lux disease with esophagitis without hemorrhage (ICD-10 - K21.00) [place], low fat diet. Begin Omeprazole daily Ondansetron as needed for nausea ER for increased pain, N/V/D or fever Jun, Nausea (ICD-10 - R11.0) Blan d diet, small portions. Begin PPI Ondansetron as needed. [facility] Other 09-11-2023 Evaluation note* Encounter Date Diagnosis Assessment Notes Treatment Notes Treatment Clinical Notes Apr, Acute seasonal allergic rhinitis (ICD-10 - J30.2) [facility] Other 05-10-2023 Evaluation note* Encounter Date Diagnosis [...] December, Fatigue, unspecified type (ICD-10 - R53.83) [facility] Other 02-17-2023 Evaluation note* Encounter Date Diagnosis [...] continue exercise to achieve/maintain a normal BMI. [facility] Other 01-03-2023 Evaluation note* Encounter Date Diagnosis Assessment Notes Treatment Notes Treatment Clinical Notes Aug, Annual physical exam (ICD-10 - Z00.00) Aug, Essential (primary) hypertension (ICD-10 - I10) Aug, IFG (impaired fastin g glucose) (ICD-10 - R73.01) Aug, Gastroesophageal ref lux disease with esophagitis without hemorrhage (ICD-10 - K21.00) Aug, Overweight (BMI 25.0-29.9) (ICD-10 - E66.3) [facility] Other 03-09-2022 NoteOPERATIVE NOTE PREOPERATIVE DIAGNOSIS: Positive [...] the pathology report. CC: Chris Cardona D.O. [facility] [place] Signed and Approved by: DR JOCY BRADSHAW . 11/03/2021 12:54:00[facility] No data available for this section [facility] [place] Evaluation noteNo [employer] [facility] [employer] Other Evaluation note* Diagnosis Onset Date Resolution Status Essential (primary) hypertension acute GERD (gastroesophageal reflux disease) acute IFG (impaired fasting glucose) acute Intermittent palpitations ac la posta Tension headache acute [facility] Work Phone: Evaluation note* Diagnosis Onset Date Resolution Status Essential (primary) hypertension acute GERD (gastroesophageal reflux disease) acute IFG (impaired fasting glucose) acute Intermittent palpitations ac la posta Tension headache acute Essential (primary) hypertension acute IFG (impaired fasting glucose) acute [facility] Work Phone: Evaluation note* Diagnosis Onset Date Resolution Status Essential (primary) hypertension acute IFG (impaired fasting glucose) acute Intermittent palpitations ac la posta Tension headache acute Transient confusion acute [facility] Work Phone: Evaluation note* Diagnosis Onset Date Resolution Status Essential (primary) hypertension acute IFG (impaired fasting glucose) acute Intermittent palpitations ac la posta Tension headache acute Transient confusion acute Essential (primary) hypertension acute GERD (gastroesophageal reflux disease) acute IFG (impaired fasting glucose) acute Intermittent palpitations ac la posta Tension headache acute [facility] Work Phone: Evaluation noteNo assessment information available [facility] Work Phone: History general Narrative - [...] Colonoscopy 10/30/2021 Hospitalization History see surgical history [facility] Other Hospital Discharge instructions No data available for this section [facility] [place] Progress note No data available for this section [facility] [place] Summary Purpose Family History No Family History [...] DATE CREATED AUTHOR AUTHOR'S ORGANIZ ATION 10/13/2024 [facility] REASON FOR VISIT (unrecogniz ed section [...] BE BASED ON THE PRIMARY CLINICAL RECORDS. [facility] [employer] [facility]. provides no warranty or guarantee of the accuracy or completeness of information in this document.
[2024-10-25 06:55] VITALS: BP 115/70; PULSE 73; TEMP 36.2; O2SAT 99; BMI 24.4
[2024-10-25] MEDS: 0.9 % SODIUM CHLORIDE 500 ML 50 ML IV (07:30)
[2024-10-25 08:09] VITALS: BP 98/62; PULSE 73; O2SAT 96
[2024-10-25 08:25] VITALS: BP 99/67; PULSE 68; O2SAT 96
== END 2024-10-25 08:42 | disposition home or self-care (01) ==
PROVIDERS: Visit Provider Surgery
PROC: (CPT 811; principal; 2024-10-25 08:00)
DX: Z09 Encounter for follow-up examination after completed treatment for conditions other than malignant neoplasm (principal); D12.2 Benign neoplasm of ascending colon; Z86.0101 Personal history of adenomatous and serrated colon polyps; I10 Essential (primary) hypertension; F32.A Depression, unspecified; Z79.82 Long term (current) use of aspirin; K21.9 Gastro-esophageal reflux disease without esophagitis; R73.03 Prediabetes
CPT/HCPCS: 45385; J2704

== ENCOUNTER 2025-01-27 09:44 | Outpatient (OUT) | payer BC, SELFPAY ==
--- OUTSIDE RECORDS SUMMARY | 2025-01-27 09:48 | XMS_ITS | CCD ---
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 Name Role Phone DOMENIC, DR SANDRA Admitting [...] Care Unavailable NILL, DR SANDRA Consulting Unavailable Brendan, Octavio Unavailable Pati Xiong Unavailable OCTAVIO CARDONA Primary Care Physician Octavio Cardona DO Primary Care Provider [phone] Jocy Bradshaw MD Attending Provider Octavio Cardona Primary Care Unavailable Nill, Jocy Coburn Attending Unavailable Nill, Jocy Coburn Admitting Unavailable NILL, Jocy Coburn Attending Unavailable NILL, Jocy Coburn Attending Unavailable NILL, Jocy Coburn Attending Unavailable NILL, Jocy Coburn Attending Unavailable Allergies Allergy Classification Reported Allergen(s) Allergy Type Date of Onset Reaction(s) Facility (1 source) patient allergy list reviewed by nurse or physicia Propensity to adverse reactions 8 Comment:Done Fidbacks Other (1 source) No Known Medication Allergies; Translations: [No Known Medication Allergies] Propensity to adverse reactions (disorder) [facility] Repository Medications Current Medications Medication Drug Class(es) Dates Sig (Normalized) Sig (Original) aspirin 81 mg chewable tablet (19 sources) Platelet Aggregation Inhibitor, Nonsteroidal Anti-inflammatory Drug Start: 01-14-2024 take 1 tablet by mouth once daily Aspirin 81 mg tablet,chewable Active 81 MG PO Daily January 14, 2024 12:00am Start: 10-03-2021 take 1 tablet by shola [...] day Active atenolol 50 mg oral tablet (20 sources) beta-Adrenergic Reuben Start: 10-03-2024 take 1 tablet by mouth once daily atenolol 50 mg Tab 50 mg = 1 tab(s), Oral, Daily, Refills(s) 0 Start Date: 10/03/24 Status: Ordered Start: 02-29-2024 take 1 tablet by shola th once daily Atenolol 50 mg tablet Active 0 .ROUTE .COMPLEX February 29, 2024 7:33am TAKE 1 TABLET BY MOUTH EVERY DAY Start: 01-14-2024 End: 02-29-2024 take 1 tablet by mouth once daily Atenolol 50 mg tablet Discontinued 50 MG PO Daily January 14, 2024 12:00am February 29, 2024 7:34am Start: 05-10-2023 take 1 tablet by shola th every twenty-four hours Atenolol 50 MG 1 tablet Orally Once a day for 30 days Replaces Diltiazem Apr, Active cyproheptadine hydrochloride 4 mg oral tablet (20 sources) Start: 09-13-2024 take 2 mg by mouth once daily at bedtime Cyproheptadine 4 mg tablet Active 2 MG PO Daily at bedtime September 13, 2024 5:42pm Start: 12-06-2023 End: 09-13-2024 take 1 tablet by mouth once daily at bedtime Cyproheptadine 4 mg tablet Discontinued 0 .ROUTE .COMPLEX May 21, 2024 6:00pm September 13, 2024 5:42pm TAKE 1 TABLET BY MOUTH EVERYDAY AT BEDTIME Start: 12-06-2023 End: 12-06-2023 take 1 tablet by mouth once daily at bedtime Cyproheptadine 4 mg tablet Discontinued 4 MG PO Daily at bedtime December 06, 2023 12:00am December 06, 2023 6:23pm Start: 05-10-2023 take 1 tablet by shola [...] oral capsule, extended release (1 source) Start: 10-03-19 DilTIAZem (Eqv-Tiazac) 240 mg/24 hours oral capsule, extended release 240 mg = 1 cap(s), Oral, Daily, Refills(s) 0 Start Date: 10/03/21 Status: Ordered escitalopram 10 mg oral tablet (4 sources) Serotonin Reuptake Inhibitor Start: 10-05-19 take 1 tablet by mouth once daily Escitalopram Oxalate 10 mg tablet Active 0 .ROUTE .COMPLEX October 05, 2024 2:24pm TAKE 1 TABLET BY MOUTH EVERY DAY Start: 09-13-2024 End: 10-05-2024 take 1 tablet by mouth once daily Escitalopram Oxalate 10 mg tablet Discontinued 10 MG PO Daily September 13, 2024 1:00am October 05, 2024 2:24pm etodolac 400 mg oral tablet (4 sources) Nonsteroidal Anti-inflammatory Drug Start: 10-09-2022 take 1 tablet by mouth every twelve hours Etodolac 400 MG 1 tablet with food Orally Twice a day for 7 days Sep, Active niacin 500 mg oral tablet (12 sources) Nicotinic Acid Start: 10-03-2021 take 1 tablet by mouth once daily niacin 500 mg oral tablet 500 mg = 1 tab(s), Oral, Daily, Refills(s) 0 Start Date: 10/03/21 Status: Ordered omeprazole 40 mg delayed release oral capsule (20 sources) Proton Pump Inhibitor Start: 10-03-2024 take 1 capsule by mouth once daily omeprazole 40 mg Cap-DR 40 mg = 1 cap(s), Oral, Daily, Refills(s) 0 Start Date: 10/03/24 Status: Ordered Start: 01-14-2024 Omeprazole 40 mg capsule,delayed release(DR/EC) Active 0 .ROUTE .COMPLEX 90 January 14, 2024 8:40am TAKE 1 CAPSULE BY MOUTH EVERY DAY 30 MINUTES BEFORE MORNING MEAL Start: 01-14-2024 End: 01-14-2024 take 1 capsule by mouth once daily Omeprazole 40 mg capsule,delayed release(DR/EC) Discontinued 40 MG PO Daily January 14, 2024 12:00am January 14, 2024 8:40am Start: 06-25-2023 take 1 capsule by mo [facility] once daily Omeprazole 40 MG 1 capsule 30 minutes before morning meal Orally Once a day for 30 days Jun, Active Completed/Discontinued Medications Medication Drug Class(es) Dates Sig (Normalized) Sig (Original) famotidine 10 mg oral tablet (19 sources) Histamine-2 Receptor Antagonist Start: 10-03-2021 End: 09-13-2024 take 1 tablet by mouth once daily Famotidine 10 mg tablet Discontinued 10 MG PO Daily January 14, 2024 12:00am September 13, 2024 5:42pm ondansetron 4 mg oral tablet (5 sources) [...] pain; Translations: [Epigastric pain] Episodic Anxiety disorders (4 sources) Generalized anxiety disorder; Translations: [Generalized anxiety [...] (1 source) Other fatigue Episodic Mood disorders (20 sources) Mild recurrent major depression; Translations: [Major [...] conditions (not mental disorders or infectious disease) (10 sources) Encounter for screening for malignant neoplasm [...] the circulatory system] Episodic Residual codes; unclassified (5 sources) Transient altered mental status; Translations: [Disorientation, [...] 01-07-2021 Episodic Other aftercare (1 source) 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 History of Present Illness f/u 3 year surveillance colonoscopy with polypectomy due to personal h/o colon polyps; had recurrent tubulovillous adenoma in ascending colon, 7 mm, irregular; denies abd pain or blood in stools. Review of Systems PHQ Score Initial Depression [...] been reviewed and are negative or noncontributory. Assessment/Plan 1. Tubulovillous adenoma of colon (D12.6: Benign neoplasm of colon, unspecified) recommend surveillance colonoscopy in [address] Rodriguez, due to recurrent sessile tubulovillous adenoma, may require lift technique for removal if recurs; call sooner if problems/questions. Follow-up No qualifying data available Problem List/Past Medical History Ongoing BMI 26.0-26.9,adult Borderline learning disability Chronic headaches HTN (hypertension) Major depressive disorder Overweight Personal history of adenomatous and serrated colon polyps Positive colorectal cancer screening using Cologuard test Seasonal allergic rhinitis Tubulovillous adenoma of colon Historical No qualifying data Procedure/Surgical History Colonoscopy (10/25/2024), Colonoscopy (10/29/2021). Medications aspirin 81 mg Oral [...] lifetime) Tobacco Use:. Never Smokeless Tobacco Use:., 11/07/2024 Family History CAD - Coronary artery disease: Father. Diabetes mellitus type 2: Father. Hypertension: Mother. Immunizations Vaccine Date Status influenza virus vaccine, inactivated 05/24/2024 Recorded SARS-CoV-2 (COVID-19) [id number] 07/06/2022 Recorded SARS-CoV-2 (COVID-19) mRNA BNT-162b2 vax 08/12/2021 Recorded influenza virus vaccine, inactivated 05/2021 Recorded SARS-CoV-2 (COVID-19) mRNA BNT-162b2 vax 01/06/2021 Recorded SARS-CoV-2 (COVID-19) mRNA BNT-162b2 vax 12/16/2020 Recorded Normal [facility] Comment on above: Result Comment: Elec tronically Signed By: DOMENIC WEST, Jocy Coburn\.br\Date and Time Signed: 11/07/24 15:33 EDT Reminderson 11-07-2024 Reminders Reminders - From: Magalys Mendoza LPN To: N - Clinical; Sent: 11/07/2024 15:46:32 EDT Show up: 09/27/2025 07:00:00 EST Subject: colonoscopy recall Due Date/Time: 10/25/2025 07:00:00 EST Reminder/Recall Patient due for surveillance colonoscopy 10/25/2025 (with Dr. Rodriguez) due to recurrent villous adenoma. Normal [facility] Pathology Request for Lab Co rpon 10-25-2024 Pathology Request for Lab [place] Normal [facility] Comment on above: Result Comment: See report. Scanned copy available in EMR. PERFORMED BY: [place] [address] PATHOLOGIST [employer] MEMBER MARCELLO HERCULES M.D. Performed By: #### P ATH TO [facility] #### [address] Ambulatory Visit Summaryon 0 10-11-2024 Ambulatory Visit Summary Ambulatory Visit Summary JOCY MICHAUD :1970 Visit Date:10/11/2024 Ambulatory Visit Instructions Your Diagnosis Personal history of adenomatous and serrated colon polyps Your Care Team Attending Physician - NILL MD, Jocy R Primary Care Physician - BALL DO, OCTAVIO This Is Your Medications List Contact [...] for choosing us for your care. Lauri [facility] Ambulatory Visit Summary Ambulatory Visit Summary JOCY MICHAUD :1970 Visit Date:10/11/2024 Ambulatory Visit Instructions Your Diagnosis Personal history of adenomatous and serrated colon polyps Your Care Team Attending Physician - Jocy BRADSHAW MD Primary Care Physician - OCTAVIO CARDONA DO [...] for choosing us for your care. Normal [facility] CBC AUTO DIFFon 09-26-2022 BASO # 0.0 103/ul Normal 0.0-0.1 [facility] Comment on above: Performed By: #### C BC #### [facility] [address] [address] [address] Billy Vann Basophils/100 WBC (Bld) 0.3 % Normal 0.2-2.0 [facility] Comment on above: Performed By: #### C BC #### [facility] [address] [address] [address] Billy Vann EO # 0.2 103/ul Normal 0.0-0.7 [facility] Comment on above: Performed By: #### C BC #### [facility] [address] [place] [address] Dr. Billy Vann Eosinophils/100 WBC (Bld) 2.6 % Normal 0.9-7.0 [facility] Comment on above: Performed By: #### C BC #### [facility] [address] [address] [address] Billy Vann Erythrocyte distribution width (RBC) [Ratio] 11.9 % Normal 11.0-15.0 [facility] Comment on above: Performed By: #### C BC #### [facility] [address] [place] [address] Dr. Billy Vann Hematocrit (Bld) [Volume fraction] 51.4 % Normal 42.0-54.0 [facility] Comment on above: Performed By: #### C BC #### [facility] [address] [address] [address] Billy Vann Hemoglobin (Bld) [Mass/Vol] 16.9 g/dL Normal 14.0-18.0 [facility] Comment on above: Performed By: #### C BC #### [facility] [address] [address] [address] Billy Vann IG # 0.03 10e3/ul Normal 0.00-0.03 [facility] Comment on above: Performed By: #### C BC #### [facility] [address] [place] [address] Dr. Billy Vann IG % 0.5 % Normal 0.0-0.5 [facility] Comment on above: Performed By: #### C BC #### [facility] [address] [place] [address] Dr. Billy Vann LYMPH # 1.7 103/ul Normal 1.2-3.8 [facility] Comment on above: Performed By: #### C BC #### [facility] [address] [place] [address] Dr. Billy Vann Lymphocytes/100 WBC (Bld) 29.6 % Normal 20.5-60.0 [facility] Comment on above: Performed By: #### C BC #### [facility] [address] [place] [address] Dr. Billy Vann MANUAL DIFF REQ NO Normal [facility] Comment on above: Performed By: #### C BC #### [facility] [address] [place] [address] Dr. Billy Vann MCH (RBC) [Entitic mass] 30.7 pg Normal 25.9-34.0 [facility] Comment on above: Performed By: #### C BC #### [facility] [address] [place] [address] Dr. Billy Vann MCHC (RBC) [Mass/Vol] 32.9 g/dL Normal 29.9-35.2 [facility] Comment on above: Performed By: #### C BC #### [facility] [address] [place] [address] Dr. Billy Vann MCV (RBC) [Entitic vol] 93.5 fL Normal 80.0-94.0 [facility] Comment on above: Performed By: #### C BC #### [facility] [address] [place] [address] Dr. Billy Vann MONO # 0.5 103/ul Normal 0.3-0.8 [facility] Comment on above: Performed By: #### C BC #### [facility] [address] [address] [address] Billy Vann Monocytes/100 WBC (Bld) 8.5 % Normal 1.7-12.0 [facility] Comment on above: Performed By: #### C BC #### [facility] [address] [address] [address] Billy Vann NEUT # 3.4 103/ul Normal 1.4-6.5 [facility] Comment on above: Performed By: #### C BC #### [facility] [address] [address] [address] Billy Vann Neutrophils/100 WBC (Bld) 58.5 % Normal 43.0-75.0 [facility] Comment on above: Performed By: #### C BC #### [facility] [address] [place] [address] Dr. Billy Vann Platelet mean volume (Bld) [Entitic vol] 9.6 fL Normal 9.5-13.5 [facility] Comment on above: Performed By: #### C BC #### [facility] [address] [place] [address] Dr. Billy Vann PLT 196 103/ul Normal 150-450 [facility] Comment on above: Performed By: #### C BC #### [facility] [address] [place] [address] Dr. Billy Vann RBC 5.50 106/ul Normal 4.70-6.10 [facility] Comment on above: Performed By: #### C BC #### [facility] [address] [place] [address] Dr. Billy Vann WBC 5.9 103/ul Normal 4.0-11.0 [facility] Comment on above: Performed By: #### C BC #### [facility] [address] [place], [place] [id number] Dr. Billy Vann LIPID PROFILEon 09-26-2022 CHOL-HDL RATIO NORM SEE BELOW Normal [facility] Comment on above: Result Comment: 3.3 - 4.4 LOW RISK 4.4 - 7.1 AVERAGE RISK 7.1 - 11.0 MODERATE RISK >11.0 HIGH RISK Performed By: #### C MP, LIPID #### [facility] [address] [address] [address] Billy Vann Cholesterol [Mass/Vol] 180 mg/dL Normal <=200 [facility] Comment on above: Performed By: #### C MP, LIPID #### [facility] [address] [address] [address] Billy Vann Cholesterol in HDL [Mass/Vol] 39 mg/dL Critically low 40-60 [facility] Comment on above: Performed By: #### C MP, LIPID #### [facility] [address] [address] [address] Billy Vann Cholesterol in LDL [Mass/Vol] 105.0 mg/dL Normal [facility] Comment on above: Performed By: #### C MP, LIPID #### [facility] [address] [address] [address] Billy Vann Cholesterol.total/C holesterol in HDL [Mass ratio] 4.6 {ratio} Normal [facility] Comment on above: Performed By: #### C MP, LIPID #### [facility] [address] [address] [address] Billy Vann HDL NORMAL > or = 60 mg/dl - LOW CARDIOVASCULAR RISK <40 mg/dl - HIGH CARDIOVASCULAR RISK Normal [facility] Comment on above: Performed By: #### C MP, LIPID #### [facility] [address] [address] [address] Billy Vann LDL CALC NORMAL SEE BELOW Normal [facility] Comment on above: Result Comment: <100 mg/dl OPTIMAL 100 - 129 mg/dl NEAR OR ABOVE OPTIMAL 130 - 159 mg/dl BORDERLINE HIGH 160 - 189 mg/dl HIGH >190 mg/dl VERY HIGH Performed By: #### C MP, LIPID #### [facility] [address] [address] [address] Billy Vann Triglyceride [Mass/Vol] 180 mg/dL Critically high <=150 [facility] Comment on above: Performed By: #### C MP, LIPID #### [facility] [address] [address] [address] Blily Vann VLDL CALC 36.0 mg/dL Normal [facility] Comment on above: Performed By: #### C MP, LIPID #### [facility] [address] [place] [address] Dr. Billy Vann PROF 14(COMP METB)on 023 Albumin [Mass/Vol] 4.0 g/dL Normal 3.4-5.0 [facility] Comment on above: Performed By: #### C MP, LIPID #### [facility] [address] [place] [address] Dr. Billy Vann Albumin/Globulin [Mass ratio] 1.3 {ratio} Normal [facility] Comment on above: Performed By: #### C MP, LIPID #### [facility] [address] [place] [address] Dr. Billy Vann ALP [Catalytic activity/Vol] 64 U/L Normal 46-116 [facility] Comment on above: Performed By: #### C MP, LIPID #### [facility] [address] [place] [address] Dr. Billy Vann ALT [Catalytic activity/Vol] 38 U/L Normal 16-63 [facility] Comment on above: Performed By: #### C MP, LIPID #### [facility] [address] [place] [address] Dr. Billy Vann Anion gap [Moles/Vol] 10.0 mmol/L Normal [facility] Comment on above: Performed By: #### C MP, LIPID #### [facility] [address] [place] [address] Dr. Billy Vann AST [Catalytic activity/Vol] 22 U/L Normal 15-37 [facility] Comment on above: Performed By: #### C MP, LIPID #### [facility] [address] [place] [address] Dr. Billy Vann Bilirubin [Mass/Vol] 0.6 mg/dL Normal 0.2-1.0 [facility] Comment on above: Performed By: #### C MP, LIPID #### [facility] [address] [place] [address] Dr. Billy Vann Calcium [Mass/Vol] 8.8 mg/dL Normal 8.5-10.1 [facility] Comment on above: Performed By: #### C MP, LIPID #### [facility] [address] [place] [address] Dr. Billy Vann Chloride [Moles/Vol] 103 mmol/L Normal 98-107 [facility] Comment on above: Performed By: #### C MP, LIPID #### [facility] [address] [place] [address] Dr. Billy Vann CO2 [Moles/Vol] 31.2 mmol/L Normal 21.0-32.0 [facility] Comment on above: Performed By: #### C MP, LIPID #### [facility] [address] [place] [address] Dr. Billy Vann Creatinine [Mass/Vol] 0.78 mg/dL Normal 0.70-1.30 [facility] Comment on above: Performed By: #### C MP, LIPID #### [facility] [address] [place] [address] Dr. Billy Vann EGFR-AF BOTSWANAN >60 Normal >=60 [facility] Comment on above: Performed By: #### C MP, LIPID #### [facility] [address] [place] [address] Dr. Billy Vann EGFR-NON AF BOTSWANAN >60 Normal >=60 [facility] Comment on above: Performed By: #### C MP, LIPID #### [facility] [address] [place] [address] Dr. Billy Vann Globulin (S) [Mass/Vol] 3.1 g/dL Normal [facility] Comment on above: Performed By: #### C MP, LIPID #### [facility] [address] [place] [address] Dr. Billy Vann Glucose [Mass/Vol] 122 mg/dL Critically high 74-106 [facility] Comment on above: Performed By: #### C MP, LIPID #### [facility] [address] [place] [address] Dr. Billy Vann Potassium [Moles/Vol] 4.2 mmol/L Normal 3.5-5.1 [facility] Comment on above: Performed By: #### C MP, LIPID #### [facility] [address] [place] [address] Dr. Billy Vann Protein [Mass/Vol] 7.1 g/dL Normal 6.4-8.2 [facility] Comment on above: Performed By: #### C MP, LIPID #### [facility] [address] [place] [address] Dr. Billy Vann Sodium [Moles/Vol] 140 mmol/L Normal 136-145 [facility] Comment on above: Performed By: #### C MP, LIPID #### [facility] [address] [place] [address] Dr. Billy Vann Urea nitrogen [Mass/Vol] 10.0 mg/dL Normal 7.0-18.0 [facility] Comment on above: Performed By: #### C MP, LIPID #### [facility] [address] [place] [address] Dr. Billy Vann Urea nitrogen/Creatinine [Mass ratio] 12.8 mg/mg Normal [facility] Comment on above: Performed By: #### C MP, LIPID #### [facility] [address] [place] [address] Dr. Billy Vann [facility] SARS-CoV-2 (COVID-19) RNA YAHIR+probe Ql (Unsp spec) Not detected Normal NOT DETECTED [facility] Comment on above: Result Comment: This test is not yet approved or cleared by the [place] FDA. When there are no FDA-approved or cleared tests available, and other criteria are met, FDA can make tests available under an emergency access mechanism called an Emergency Use Authorization (EUA). The EUA for this test is supported by the [employer] of Health and Human Service's (HHS's) declaration [...] consistent with SARS-CoV-2. Performed By: #### C VDTB #### [facility] [address] [place] [id number] [address] Billy Vann Covid-19 PCR ([facility])on SARS-CoV-2 (COVID-19) RNA YAHIR+probe Ql (Unsp spec) Not detected Normal NOT DETECTED [facility] Comment on above: Result Comment: This test is not yet approved or cleared by the [place] FDA. When there are no FDA-approved or cleared tests available, and other criteria are met, FDA can make tests available under an emergency access mechanism called an Emergency Use Authorization (EUA). The EUA for this test is supported by the [place] of Health and Human Service's (HHS's) declaration [...] consistent with SARS-CoV-2. Performed By: #### C VDTB #### [facility] [address] [place] [id number] [address] Billy Vann Vital Signs Date Time Vital Sign Value Performing Clinician Facility 10-11-2024 15:26-0500 Blood Pressure Location Jocy BRADSHAW [facility] 10-11-2024 15:26-0500 Diastolic blood pressure 70 mm[Hg] Jocy BRADSHAW [facility] 10-11-2024 15:26-0500 Heart rate 72 /min Jocy SCHRADERL [facility] 10-11-2024 15:26-0500 Respiratory rate 16 /min Jocy SCHRADERL [facility] 10-11-2024 15:26-0500 Systolic blood pressure 114 mm[Hg] Jocy NILL [facility] 10-03-2024 15:56-0500 Body height 185.42 cm [facility] 10-03-2024 15:56-0500 Body mass index (BMI) [Ratio] 26.5 kg/m2 [facility] 10-03-2024 15:56-0500 Body weight 91.28 kg [facility] 10-03-2024 15:56-0500 Diastolic blood pressure 75 mm[Hg] [facility] 10-03-2024 15:56-0500 Heart rate 74 /min [facility] 10-03-2024 15:56-0500 Respiratory rate 12 /min [facility] 10-03-2024 15:56-0500 Systolic blood pressure 108 mm[Hg] [facility] 09-13-2024 15:49-0500 Body height 185.42 cm [facility] 09-13-2024 15:49-0500 Body mass index (BMI) [Ratio] 26.5 kg/m2 [facility] 09-13-2024 15:49-0500 Body weight 91.22 kg [facility] 09-13-2024 15:49-0500 Diastolic blood pressure 86 mm[Hg] [facility] 09-13-2024 15:49-0500 Heart rate 89 /min [facility] 09-13-2024 15:49-0500 Respiratory rate 12 /min [facility] 09-13-2024 15:49-0500 Systolic blood pressure 121 mm[Hg] [facility] 05-24-2024 15:36-0400 Body height 185.42 cm [facility] 05-24-2024 15:36-0400 Body mass index (BMI) [Ratio] 25.6 kg/m2 [facility] 05-24-2024 15:36-0400 Body weight 88.11 kg [facility] 05-24-2024 15:36-0400 Diastolic blood pressure 80 mm[Hg] [facility] 05-24-2024 15:36-0400 Heart rate 81 /min [facility] 05-24-2024 15:36-0400 Respiratory rate 12 /min [facility] 05-24-2024 15:36-0400 Systolic blood pressure 123 mm[Hg] [facility] 03-27-2024 15:55-0400 Body height 185.42 cm [facility] 03-27-2024 15:55-0400 Body mass index (BMI) [Ratio] 25.4 kg/m2 [facility] 03-27-2024 15:55-0400 Body weight 87.54 kg [facility] 03-27-2024 15:55-0400 Diastolic blood pressure 77 mm[Hg] [facility] 03-27-2024 15:55-0400 Heart rate 91 /min [facility] 03-27-2024 15:55-0400 Respiratory rate 12 /min [facility] 03-27-2024 15:55-0400 Systolic blood pressure 112 mm[Hg] [facility] 01-19-2024 16:22-0400 Body height 185.42 cm [facility] 01-19-2024 16:22-0400 Body mass index (BMI) [Ratio] 26.2 kg/m2 [facility] 01-19-2024 16:22-0400 Body weight 90.37 kg [facility] 01-19-2024 16:22-0400 Diastolic blood pressure 72 mm[Hg] [facility] 01-19-2024 16:22-0400 Heart rate 76 /min [facility] 01-19-2024 16:22-0400 Respiratory rate 12 /min [facility] 01-19-2024 16:22-0400 Systolic blood pressure 108 mm[Hg] [facility] 09-13-2023 15:30-0500 Body height 185.42 cm Octavio Ball Other [facility] Other 09-13-2023 15:30-0500 Body mass index (BMI) [Ratio] 28.07 kg/m2 Octavio Ball Other [facility] Other 09-13-2023 15:30-0500 Body weight 96.53 kg Octavio Ball Other [facility] Other 09-13-2023 15:30-0500 Diastolic blood pressure 75 mm[Hg] Octavio Ball Other [facility] Other 09-13-2023 15:30-0500 Respiratory rate 12 /min Octavio Ball Other [facility] Other 09-13-2023 15:30-0500 Systolic blood pressure 105 mm[Hg] Octavio Ball Other [facility] Other 06-25-2023 14:00-0400 Body height 185.42 cm Octavio Ball Other [facility] Other 06-25-2023 14:00-0400 Body mass index (BMI) [Ratio] 28.49 kg/m2 Octavio Ball Other [facility] Other 06-25-2023 14:00-0400 Body weight 97.98 kg Octavio Ball Other [facility] Other 06-25-2023 14:00-0400 Diastolic blood pressure 82 mm[Hg] Octavio Ball Other [facility] Other 06-25-2023 14:00-0400 Respiratory rate 12 /min Octavio Ball Other [facility] Other 06-25-2023 14:00-0400 Systolic blood pressure 117 mm[Hg] Octavio Ball Other [facility] Other 12-30-2022 16:15-0400 Body height 185.42 cm Octavio Ball Other [facility] Other 12-30-2022 16:15-0400 Body mass index (BMI) [Ratio] 29.13 kg/m2 Octavio Ball Other [facility] Other 12-30-2022 16:15-0400 Body weight 100.15 kg Octavio Ball Other [facility] Other 12-30-2022 16:15-0400 Diastolic blood pressure 91 mm[Hg] Octavio Ball Other [facility] Other 12-30-2022 16:15-0400 Respiratory rate 12 /min Octavio Ball Other [facility] Other 12-30-2022 16:15-0400 Systolic blood pressure 134 mm[Hg] Octavio Ball Other [facility] Other 10-09-2022 13:45-0500 Body height 185.42 cm Octavio Ball Other [facility] Other 10-09-2022 13:45-0500 Body mass index (BMI) [Ratio] 29.21 kg/m2 Octavio Ball Other [facility] Other 10-09-2022 13:45-0500 Body weight 100.43 kg Octavio Ball Other [facility] Other 10-09-2022 13:45-0500 Diastolic blood pressure 78 mm[Hg] Octavio Ball Other [facility] Other 10-09-2022 13:45-0500 Respiratory rate 12 /min Octavio Ball Other [facility] Other 10-09-2022 13:45-0500 Systolic blood pressure 122 mm[Hg] Octavio Ball Other [facility] Other 08-25-2022 16:30-0500 Body height 185.42 cm Octavio Ball Other [facility] Other 08-25-2022 16:30-0500 Body mass index (BMI) [Ratio] 28.71 kg/m2 Octavio Ball Other [facility] Other 08-25-2022 16:30-0500 Body weight 98.7 kg Octavio Ball Other [facility] Other 08-25-2022 16:30-0500 Diastolic blood pressure 82 mm[Hg] Octavio Ball Other [facility] Other 08-25-2022 16:30-0500 Respiratory rate 12 /min Octavio Ball Other [facility] Other 08-25-2022 16:30-0500 Systolic blood pressure 122 mm[Hg] Octavio Ball Other [facility] Other Encounters Encounter Date Encounter Type Care Provider Facility Start: 11-07-2024 End: 11-07-2024 ambulatory Jocy BRADSHAW Facility: [facility] Start: 10-25-2024 End: 10-25-2024 ambulatory Octavio Ball DO Work Phone: [facility] Work Phone: Start: 10-25-2024 End: 10-25-2024 Departed Referred Octavio Ball DO Work Phone: [facility] Start: 10-25-2024 End: 10-25-2024 ambulatory Jocy BRADSHAW Facility::[id number] Start: 10-11-2024 End: 10-11-2024 ambulatory Jocy BRADSHAW Facility: [facility] Start: 10-11-2024 End: 10-11-2024 Patient encounter procedure Jocy BRADSHAW [facility] Start: 10-03-2024 Patient encounter status [facility] Start: 10-03-2024 End: 10-03-2024 ambulatory [facility] Work Phone: Start: 10-03-2024 End: 10-03-2024 Encounter for general adult medical examination without abnormal findings [facility] Start: 10-03-2024 End: 10-03-2024 Patient encounter procedure [facility] Work Phone: Start: 09-13-2024 End: 09-13-2024 ambulatory [facility] Work Phone: Start: 09-13-2024 End: 09-13-2024 Patient encounter procedure [facility] Work Phone: Start: 05-24-2024 End: 05-24-2024 ambulatory [facility] Work Phone: Start: 05-24-2024 End: 05-24-2024 Patient encounter procedure [facility] Work Phone: Start: 04-19-2024 End: 04-19-2024 ambulatory [facility] Work Phone: Start: 04-19-2024 End: 04-19-2024 Patient encounter procedure [facility] Work Phone: Start: 03-27-2024 End: 03-27-2024 ambulatory [facility] Work Phone: Start: 03-27-2024 End: 03-27-2024 Patient encounter procedure [facility] Work Phone: Start: 01-19-2024 End: 01-19-2024 ambulatory [facility] Work Phone: Start: 01-19-2024 End: 01-19-2024 Patient encounter procedure [facility] Work Phone: Start: 12-06-2023 Non-patient / Non-visit [facility] Work Phone: Start: 09-13-2023 End: 09-13-2023 ambulatory Octavio Cardona Other [facility] Other Start: 09-13-2023 Encounter for genera l adult medical examination without abnormal findings Octavio Cardona [facility] Start: 09-13-2023 Periodic preventive med est patient 40-64yrs Octavio Cardona [facility] Start: 08-04-2023 End: 08-04-2023 ambulatory Octavio Cardona Other [facility] Other Start: 08-04-2023 Telephone encounter Octavio Cardona [facility] Start: 06-28-2023 End: 06-28-2023 ambulatory Octavio Cardona Other [facility] Other Start: 06-28-2023 Telephone encounter Octavio Cardona [facility] Start: 06-25-2023 End: 06-25-2023 ambulatory Octavio Cardona Other [facility] Other Start: 06-25-2023 Office outpatient vi sit 15 minutes Octavio Cardona [facility] Start: 06-25-2023 Telephone encounter Octavio Cardona [facility] Start: 06-24-2023 End: 06-24-2023 ambulatory Octavio Cardona Other [facility] Other Start: 06-24-2023 Telephone encounter Octavio Cardona [facility] Start: 05-12-2023 End: 05-12-2023 ambulatory Octavio Cardona Other [facility] Other Start: 05-12-2023 Telephone encounter Octavio HAYNES [facility] Start: 05-03-2023 End: 05-03-2023 ambulatory Pati Xiong Other [facility] Other Start: 05-03-2023 Nursing evaluation o f patient and report Pati Xiong [facility] Start: 12-30-2022 End: 12-30-2022 ambulatory Octavio Cardona Other [facility] Other Start: 12-30-2022 Office outpatient vi sit 25 minutes Octavio Cardona [facility] Start: 10-09-2022 End: 10-09-2022 ambulatory Octavio Cardona Other [facility] Other Start: 10-09-2022 Office outpatient vi sit 15 minutes Octavio Cardona [facility] Start: 09-28-2022 Encounter for genera l adult medical examination without abnormal findings DR OCTAVIO CARDONA [facility] Start: 09-26-2022 End: 09-27-[address] OCTAVIO CARDONA Facility:[facility] Start: 09-26-2022 End: 09-27-2022 Encounter for general adult medical examination without abnormal findings DR OCTAVIO CARDONA Facility:[facility] Start: 08-25-2022 End: 08-25-2022 ambulatory Octavio Cardona Other [facility] Other Start: 08-25-2022 Patient encounter procedure Octavio Cardona [facility] Start: 08-25-2022 Periodic preventive med est patient 40-64yrs Octavio Cardona [facility] Start: 06-08-2022 End: 06-08-[address] OCTAVIO CARDONA Facility:[facility] Start: 10-29-2021 End: 10-29-[address] JOCY BRADSHAW Facility:[facility] Start: 10-28-2021 Encounter for preprocedural laboratory examination DR JOCY BRADSHAW [facility] Start: 10-25-2021 End: 10-26-[address] JOCY BRADSHAW Facility:[facility] Start: 10-25-2021 End: 10-26-2021 Encounter for preprocedural laboratory examination DR JOCY BRADSHAW Facility:[facility] Start: 07-22-2021 Adult health examination Cristina wilma Xiong Other [facility] Other Procedures Date Procedure Procedure Detail Performing Clinician Start: 09-26-[address] JOHNNIE BRADSHAW Comment on above: Performed By: #### P SAS #### [facility] [address] [address] [address] Billy Vann Start: 10-29-2021 Colonoscopy Jocy SANTANA Start: 06-22-2016 General examination of patient Pati [facility] Other End: 09-17-2021 Depression screening Patijael Xiong Other Plan of Treatment Date Care Activity Detail Author Comprehensive metabo lic 2000 panel - Serum or Plasma [facility] Immunizations Immunization Date Immunization Notes Care Provider Fa cility 05-24-2024 influenza virus vaccine, unspecified formulation Jocy BRADSHAW [facility] 05-24-2024 influenza, seasonal, injectable, preservative free [facility] 07-06-2022 SARS-CoV-2 (COVID-19 ) [id number] Jocy BRADSHAW [facility] 08-12-2021 COVID-19 Vaccine Pfi zer - Documentation Purposes Only Pati Xiong Other [facility] 07-24-2021 influenza virus vaccine, split virus (incl. purified surface antigen) Pati Xiong Other [facility] Other 07-24-2021 influenza virus vaccine, unspecified formulation [facility] 05-23-2021 influenza virus vaccine, unspecified formulation Jocy BRADSHAW [facility] 01-06-2021 SARS-CoV-2 (COVID-19 ) mRNA BNT-162b2 vax Jocy SCHRADERL [facility] 12-16-2020 SARS-CoV-2 (COVID-19 ) mRNA BNT-162b2 vax Jocy SCHRADERL [facility] 06-06-2020 influenza virus vaccine, split virus (incl. purified surface antigen) Pati Xiong Other [facility] [employer] Other 06-06-2020 influenza virus vaccine, unspecified formulation [facility] 05-04-2018 influenza virus vaccine, split virus (incl. purified surface antigen) Pati Xiong Other [facility] [employer] Other 05-04-2018 influenza virus vaccine, unspecified formulation [facility] 06-28-2017 tetanus and diphther ia toxoids, adsorbed, preservative free, for adult use (5 Lf of tetanus toxoid and 2 Lf of diphtheria toxoid) Pati Xiong Other [facility] 06-25-2014 influenza virus vaccine, split virus (incl. purified surface antigen) Pati Xiong Other [facility] Other 06-25-2014 influenza virus vaccine, unspecified formulation [facility] 05-31-2013 tetanus and diphther ia toxoids, adsorbed, preservative free, for adult use (5 Lf of tetanus toxoid and 2 Lf of diphtheria toxoid) Pati Xiong Other [facility] Payers Date Payer Category Payer Self-pay 1972 Unknown [id number] 1972 Unknown [id number] [id number] 1972 Unknown [id number] 2.16.84 [id number] 1972 Unknown [id number] 2.16.84 [id number] 1972 Unknown [id number] 2.16.8 [id number] 1972 Unknown [id number] 2.16.8 [id number] 1972 Unknown [id number] 2.16.8 [id number] 1972 Unknown [id number] 2.16.8 [id number] 1959 Unknown [id number] Unknown [id number] 2.16.8 [id number] Social History Date Type Detail Facility Sex Assigned At [facility] Start: 1970 Sex Assigned At Male F [facility] if ever smoked [facility] Work Phone: Start: 09-13-2024 End: 10-25-2024 Sex Male (finding) [facility] Start: 10-11-2024 Tobacco smoking status Never s moked tobacco (finding) [facility] Functional Status Date Assessment Result Facility 10-11-2024 Functional Status N/A [facility] Clinical Notes 10-29-2021 to 10-11-2024 Note Date [...] virus vaccine, inactivated 05/24/2024 Recorded SARS-CoV-2 (COVID-19) [id number] 07/06/2022 Recorded SARS-CoV-2 ( (more content not included)... [facility] Comment on above: Result Comment: Elec [...] 3:27pm Essential (primary) hypertension acute October 03 025 3:31pm GERD (gastroesophageal reflux disease) acute October 03 025 3:31pm IFG (impaired fasting glucose) acute October 03 025 3:31pm Intermittent palpitations acute October 03 025 3:31pm Major depression acute October 03, 2024 3:31pm Screening PSA (prostate specific antigen) acute October 03, 2024 3:31pm Tension headache acute October 03, 2024 3:31pm Wellness examination acute 2024 3:31pm Screening for colon cancer noneactive October 03 025 3:31pm [facility] Work Phone: [phone] 881-342001-22-2024 Evaluation note* Encounter Date Diagnosis Assessment Notes [...] and exercise. Reviewed age-appropriate preventive testing recommended. [facility] Other 11-03-2023 Evaluation note* Encounter Date Diagnosis Assessment Notes Treatment Notes Treatment Clinical Notes Jun, Right upper quadrant abdominal pain (ICD-10 - R10.11) Low fat, bland diet. GBUS and Hepatic pf, Amylase ER for increased pain, N/V or fever Jun, Gastroesophageal ref lux disease with esophagitis without hemorrhage (ICD-10 - K21.00) Lander, low fat diet. Begin Omeprazole daily Ondansetron as needed for nausea ER for increased pain, N/V/D or fever Jun, Nausea (ICD-10 - R11.0) Blan d diet, small portions. Begin PPI Ondansetron as needed. [facility] Other 09-11-2023 Evaluation note* Encounter Date Diagnosis Assessment Notes Treatment Notes Treatment Clinical Notes Apr, Acute seasonal allergic rhinitis (ICD-10 - J30.2) [facility] Other 05-10-2023 Evaluation note* Encounter Date Diagnosis [...] December, Fatigue, unspecified type (ICD-10 - R53.83) [facility] Other 02-17-2023 Evaluation note* Encounter Date Diagnosis [...] continue exercise to achieve/maintain a normal BMI. [facility] Other 01-03-2023 Evaluation note* Encounter Date Diagnosis Assessment Notes Treatment Notes Treatment Clinical Notes Aug, Annual physical exam (ICD-10 - Z00.00) Aug, Essential (primary) hypertension (ICD-10 - I10) Aug, IFG (impaired fastin g glucose) (ICD-10 - R73.01) Aug, Gastroesophageal ref lux disease with esophagitis without hemorrhage (ICD-10 - K21.00) Aug, Overweight (BMI 25.0-29.9) (ICD-10 - E66.3) [facility] Other 03-09-2022 NoteOPERATIVE NOTE PREOPERATIVE DIAGNOSIS: Positive [...] the pathology report. CC: Chris Cardona D.O. [facility] Signed and Approved by: DR JOCY BRADSHAW . 11/03/2021 12:54:00[facility] No data available for this section [facility] Evaluation noteNo [employer] Other Evaluation note* Diagnosis Onset Date Resolution Status Essential (primary) hypertension acute GERD (gastroesophageal reflux disease) acute IFG (impaired fasting glucose) acute Intermittent palpitations ac [place] Tension headache acute [facility] Work Phone: Evaluation note* Diagnosis Onset Date Resolution Status Essential (primary) hypertension acute GERD (gastroesophageal reflux disease) acute IFG (impaired fasting glucose) acute Intermittent palpitations [place] Tension headache acute Essential (primary) hypertension acute IFG (impaired fasting glucose) acute [facility] Work Phone: Evaluation note* Diagnosis Onset Date Resolution Status Essential (primary) hypertension acute IFG (impaired fasting glucose) acute Intermittent palpitations [place] Tension headache acute Transient confusion acute [facility] Work Phone: Evaluation note* Diagnosis Onset Date Resolution Status Essential (primary) hypertension acute IFG (impaired fasting glucose) acute Intermittent palpitations [place] Tension headache acute Transient confusion acute Essential (primary) hypertension acute GERD (gastroesophageal reflux disease) acute IFG (impaired fasting glucose) acute Intermittent palpitations [place] Tension headache acute [facility] Work Phone: Evaluation noteNo assessment information available [facility] Work Phone: His[facility] general Narrative - Reported* Type Description Date [...] Colonoscopy 10/30/2021 Hospitalization History see surgical history [facility] Other Hospital Discharge instructions No data available for this section [facility] Progress note No data available for this section [facility] Summary Purpose Family History No Family History [...] 3:31pm Screening for colon cancer September 3:31pm Chief Complaint Admit Date anxiety September 13, 2024 3 :27pm Wellness October 03, 2024 3:31pm Unknown October 25, 2024 8:06 am Additional Source Comments (unrecognized sect ion and content) No Status Records FoundNo Status Records FoundNo Status Records Found INFORMATION SOURCE (unrecogn ized section and content) DATE CREATED AUTHOR 09/28/2022 [facility] DATE CREATED AUTHOR AUTHOR'S ORGANIZ ATION 11/03/2024 [facility] DATE CREATED AUTHOR AUTHOR'S ORGANIZ ATION 11/10/2024 [facility] REASON FOR VISIT (unrecogniz ed [...] 2024 Team Status: Inactive Member Role Status Ziggy Cardona DO Primary Care Provide r, Attending Provider Active Start: March 27, 2024 End: March 27, 2024 Team Status: Active Member Role Status Dates Octavio Cardona DO Primary Care Provider Active Start: December 06, 2023 ISAK Cassidy Attending Provider Active Start : December 06, 2023 Team Status: Inactive Member Role Status Ziggy Cardona DO Primary Care Provide r, Attending Provider Active Start: April 19, 2024 End: April 19, 2024 Team Status: Inactive Member Role Status Ziggy Cardona DO Primary Care Provide r, Attending Provider Active Start: May 24, 2024 End: May 24, 2024 Team Status: Inactive Member Role Status Ziggy Cardona DO Primary Care Provide r, Attending Provider Active Start: September 13, 2024 End: September 13, 2024 Team Status: Inactive Member Role Status Dates Octavio Cardona DO Primary Care Provide r, Attending Provider Active Start: October 03, 2024 End: October 03, 2024 Team Status: Inactive Member Role Status Ziggy Cardona DO Primary Care Provider Active Start: October 25, 2024 End: October 25, 2024 Jocy Bradshaw MD FACS Attending Provider Active Start: October 25, 2024 End: October 25, 2024 Goals (unrecognized section and content) Goals [...] BE BASED ON THE PRIMARY CLINICAL RECORDS. [facility]. provides no warranty or guarantee of the accuracy or completeness of information in this document.
[2025-01-27 10:03] LABS: Basophils Percent Auto 0.4 % (0.2-2.0); Eosinophils Absolute Auto 0.2 10^3/uL (0.0-0.7); Eosinophils Percent Auto 3.3 % (0.9-7.0); Hematocrit 45.5 % (42.0-54.0); Hemoglobin 15.8 g/dL (14.0-18.0); Immature Granulocytes Abs Auto 0.01 10^3/uL (0.00-0.03); Immature Granulocytes Pct Auto 0.2 % (0.0-0.5); Lymphocytes Absolute Auto 1.7 10^3/uL (1.2-3.8); Lymphocytes Percent Auto 35.7 % (20.5-60.0); Mean Corpuscular HGB Conc 34.7 g/dL (29.9-35.2); Mean Corpuscular Hemoglobin 30.7 pg (25.9-34.0); Mean Corpuscular Volume 88.5 fL (80.0-94.0); Monocytes Absolute Auto 0.4 10^3/uL (0.3-0.8); Monocytes Percent Auto 7.8 % (1.7-12.0); Neutrophils Absolute Auto 2.6 10^3/uL (1.4-6.5); Neutrophils Percent Auto 52.6 % (43.0-75.0); Platelet Count 185 10^3/uL (150-450); Red Blood Count 5.14 10^6/uL (4.70-6.10); Red Cell Distribution Width 11.8 % (11.0-15.0); White Blood Count 4.9 10^3/uL (4.0-11.0)
[2025-01-27 10:43] LABS: Estimated Average Glucose 97 mg/dL
[2025-01-27 10:44] LABS: Alanine Aminotransferase 29 U/L (16-63); Albumin Globulin Ratio 1.3; Alkaline Phosphatase 63 U/L (46-116); Anion Gap 10.4; Aspartate Amino Transferase 20 U/L (15-37); BUN Creatinine Ratio 13.6; Bilirubin Total 0.6 mg/dL (0.2-1.0); Calcium 8.7 mg/dL (8.5-10.1); Carbon Dioxide 32.6 mmol/L (21.0-32.0); Chloride 105 mmol/L (98-107); Estimated GFR (African America >60 (>=60 mL/min/1.73m^2); Estimated GFR (Non-African Ame >60 (>=60 mL/min/1.73m^2); Glucose 101 mg/dL (74-106); Sodium 144 mmol/L (136-145)
[2025-01-27 11:24] LABS: Prostate Specific Antigen Scrn 2.07 ng/mL (<=4.00)
[2025-01-27 11:44] LABS: Chol HDL Ratio 3.9; Cholesterol 151 mg/dL (<=200); HDL Cholesterol 39 mg/dL (40-60); Triglycerides 75 mg/dL (<=150)
== END 2025-01-27 09:45 | disposition home or self-care (01) ==
LOC: LAB 09:45
PROVIDERS: PCP Internal Medicine; Visit Provider Internal Medicine
DX: Z00.00 Encounter for general adult medical examination without abnormal findings (principal); Z12.5 Encounter for screening for malignant neoplasm of prostate
CPT/HCPCS: 36415; 80053; 80061; 83036; 85025; G0103